=== PATIENT | female | born 1940 | race Caucasian/White ===

== ENCOUNTER → 2016-12-23 | Outpatient (CLI) | payer MEDICARE, OTHER ==
[~2016-12-23] MED LIST: AMLO10TA PO; LEVO25TA5 PO; LISI10TA4 PO; PROP80CA PO; PROP80TA PO; TRAZ25TA PO
[2016-12-23 11:04] LABS: ALBUMIN 3.9 GM/DL (3.2-5.2); ALKALINE PHOSPHATASE 100 U/L (45-117); ALT/SGPT 26 U/L (12-78); ANION GAP 8 MEQ/L (8-16); AST/SGOT 20 U/L (15-37); BILIRUBIN,TOTAL 0.5 MG/DL (0.2-1.0); BLOOD UREA NITROGEN 11 MG/DL (7-18); CARBON DIOXIDE LEVEL 30 MEQ/L (21-32); CHLORIDE LEVEL 104 MEQ/L (98-107); CHOLESTEROL LEVEL 192 MG/DL (<200); CREATININE FOR GFR 0.84 MG/DL (0.55-1.02); FREE T4 1.12 NG/DL (0.76-1.46); GLOMERULAR FILTRATION RATE > 60.0 (>39); GLUCOSE, FASTING 97 MG/DL (83-110); POTASSIUM SERUM 4.7 MEQ/L (3.5-5.1); SODIUM LEVEL 142 MEQ/L (136-145); TOTAL PROTEIN 7.8 GM/DL (6.4-8.2); TRIGLYCERIDES LEVEL 212 MG/DL (<150)
== END ==
LOC: M SMT 08:04
PROVIDERS: ATTEND Physician Assistant
DX: I10 Essential (primary) hypertension (principal)

== ENCOUNTER 2017-02-25 11:07 | Emergency (ER) | payer MEDICARE, OTHER ==
[~2017-02-25] VITALS: Ht 167.6 cm; Wt 90.4 kg
[2017-02-25] MEDS ORDERED: LEVO75TA4 PO (11:25)
[2017-02-25] MEDS ORDERED: PROP80CA PO (11:25)
[2017-02-25] MEDS ORDERED: LOSA100T36 PO (11:25)
[2017-02-25 12:53] LABS: BASO % 0.5 % (0.0-1.0); EOS # 0.1 K/mm3 (0.0-0.50); LARGE UNSTAINED CELL # 0.1 K/mm3 (0.0-0.4); LARGE UNSTAINED CELL % 1.7 % (0.0-4.0); LYMPH # 2.2 K/mm3 (1.5-4.5); LYMPH % 24.4 % (24.0-44.0); MEAN CORPUSCULAR HEMOGLOBIN 29.3 pg (27.0-33.0); MEAN CORPUSCULAR VOLUME 88.9 fl (80.0-96.0); MONO # 0.5 K/mm3 (0.0-0.8); MONO % 6.6 % (0.0-5.0); NEUTROPHILS # 5.5 K/mm3 (1.8-7.7); NEUTROPHILS % 65.9 % (36.0-66.0); PLATELET COUNT, AUTOMATED 226 k/mm3 (150-450); RED CELL DISTRIBUTION WIDTH 13.6 % (11.5-14.5); WHITE BLOOD COUNT 8.3 K/mm3 (4.0-10.0)
[2017-02-25 12:58] LABS: ALBUMIN 3.8 GM/DL (3.2-5.2); ALBUMIN/GLOBULIN RATIO 1.03 (1.00-1.93); ALKALINE PHOSPHATASE 89 U/L (45-117); ALT/SGPT 31 U/L (12-78); ANION GAP 8 MEQ/L (8-16); AST/SGOT 25 U/L (15-37); BILIRUBIN,DIRECT 0.1 MG/DL (0.0-0.2); BILIRUBIN,TOTAL 0.5 MG/DL (0.2-1.0); BLOOD UREA NITROGEN 14 MG/DL (7-18); CARBON DIOXIDE LEVEL 28 MEQ/L (21-32); CHLORIDE LEVEL 102 MEQ/L (98-107); CREATININE FOR GFR 0.84 MG/DL (0.55-1.02); GLOMERULAR FILTRATION RATE > 60.0 (>39); GLUCOSE, FASTING 134 MG/DL (83-110); POTASSIUM SERUM 4.1 MEQ/L (3.5-5.1); SODIUM LEVEL 138 MEQ/L (136-145); TOTAL PROTEIN 7.5 GM/DL (6.4-8.2)
--- NOTE | 2017-02-25 13:05 | REP ---
CT HEAD WITHOUT CONTRAST: HISTORY: Confusion. COMPARISON: 09/27/2014. Areas of decreased attentuation are present in the basal ganglia. These represent old lacunar infarctions. Areas of decreased attentuation are present in the periventricular white matter. This represents small vessel ischemic disease. There is on intraparenchymal hemorrhage, mass, or midline shift. The ventricular system and cortical sulci are dilated consistent with minimal volume loss. There is no extracerebral collection. The visualized sinuses are clear. IMPRESSION: 1. Old bilateral basal ganglia lacunar infarctions. 2. Small vessel ischemic disease. 3. Minimal volume loss. Signed by Ralph Dover MD 02/25/2017 01:06 P
[2017-02-25 16:11] VITALS: BP 175/79
--- NOTE | 2017-02-26 09:16 | ECGEPIP ---
Stationary ECG Study [facility] - ED Test Date: 2017-02-25 Pat Name: NETTA GIBSON Department: Room: - Gender: F Reed Maker: JOHN : 1940 Requested By: JIMY Mccann Order Number: [id number] Reading MD: Abiola Berrios Measurements Intervals [place] Rate: 65 P: 40 ME: 165 QRS: -38 QRSD: 102 T: 6 QT: 386 QTc: 404 Interpretive Statements SINUS RHYTHM MARKED LEFT AXIS DEVIATION PATTERN CONSISTENT WITH PULMONARY DISEASE VOLTAGE CRITERIA FOR LVH SIMILAR 10/20/14 Electronically Signed On 02-26-2017 9:15:59 EDT by Abiola Berrios
== END 2017-02-25 16:13 | disposition home or self-care (01) ==
LOC: M ED 15:15
DX: R41.0 Disorientation, unspecified (principal); I10 Essential (primary) hypertension; E03.9 Hypothyroidism, unspecified; Z79.899 Other long term (current) drug therapy; Z88.1 Allergy status to other antibiotic agents; Z88.8 Allergy status to other drugs, medicaments and biological substances

== ENCOUNTER → 2017-03-09 | Outpatient (CLI) | payer MEDICARE, OTHER ==
[~2017-03-09] MED LIST changes: +LEVO75TA4 PO; +LOSA100T36 PO
[2017-03-09 10:37] LABS: ANION GAP 8 MEQ/L (8-16); BLOOD UREA NITROGEN 18 MG/DL (7-18); CALCIUM LEVEL 8.7 MG/DL (8.8-10.2); CARBON DIOXIDE LEVEL 29 MEQ/L (21-32); CHLORIDE LEVEL 102 MEQ/L (98-107); CREATININE FOR GFR 0.86 MG/DL (0.55-1.02); FREE T4 1.16 NG/DL (0.76-1.46); GLOMERULAR FILTRATION RATE > 60.0 (>39); GLUCOSE, FASTING 121 MG/DL (83-110); POTASSIUM SERUM 4.4 MEQ/L (3.5-5.1); SODIUM LEVEL 139 MEQ/L (136-145)
== END ==
LOC: M LAB 09:37
PROVIDERS: ATTEND Physician Assistant
DX: R74.8 Abnormal levels of other serum enzymes (principal); I10 Essential (primary) hypertension; E03.9 Hypothyroidism, unspecified

== ENCOUNTER 2017-05-29 09:00 | Emergency (ER) | payer MEDICARE, OTHER ==
[~2017-05-29] VITALS: Ht 162.6 cm; Wt 89.2 kg
[2017-05-29] MEDS ORDERED: ASPI81CH PO (09:20)
[2017-05-29 11:06] LABS: BASO % 0.6 % (0.0-1.0); EOS # 0.2 K/mm3 (0.0-0.50); EOS % 2.3 % (0.0-3.0); LARGE UNSTAINED CELL # 0.1 K/mm3 (0.0-0.4); LARGE UNSTAINED CELL % 1.8 % (0.0-4.0); LYMPH # 2.2 K/mm3 (1.5-4.5); LYMPH % 26.5 % (24.0-44.0); MEAN CORPUSCULAR HEMOGLOBIN 30.1 pg (27.0-33.0); MEAN CORPUSCULAR HGB CONC 32.9 g/dl (32.0-36.5); MEAN CORPUSCULAR VOLUME 91.4 fl (80.0-96.0); MONO # 0.5 K/mm3 (0.0-0.8); MONO % 6.2 % (0.0-5.0); NEUTROPHILS # 4.9 K/mm3 (1.8-7.7); NEUTROPHILS % 62.5 % (36.0-66.0); PLATELET COUNT, AUTOMATED 203 k/mm3 (150-450); RED CELL DISTRIBUTION WIDTH 12.8 % (11.5-14.5); WHITE BLOOD COUNT 7.8 K/mm3 (4.0-10.0)
--- NOTE | 2017-05-29 11:06 | REP ---
Left lower extremity Duplex Doppler venous ultrasound: Real time compression and duplex Doppler interrogation of the left lower extremity deep venous system is performed. The left common femoral, superficial femoral and popliteal veins are fully compressible with transducer pressure and demonstrate normal spontaneous and phasic flow, without evidence of deep venous thrombosis. Impression: No evidence of deep venous thrombosis of the left lower extremity femoral popliteal venous system. Incidental note is made of a Laguna's cyst 2.8 x 1.8 x 1.7 cm. Signed by Valentin Corea MD 05/29/2017 10:57 A
[2017-05-29] MEDS ORDERED: PERCOCET 5MG/325MG TAB PO ONE (11:15)
[2017-05-29 11:34] LABS: ALBUMIN 3.5 GM/DL (3.2-5.2); ALKALINE PHOSPHATASE 81 U/L (45-117); ALT/SGPT 25 U/L (12-78); ANION GAP 11 MEQ/L (8-16); AST/SGOT 18 U/L (15-37); BILIRUBIN,DIRECT < 0.1 MG/DL (0.0-0.2); BILIRUBIN,TOTAL 0.5 MG/DL (0.2-1.0); BLOOD UREA NITROGEN 15 MG/DL (7-18); CALCIUM LEVEL 8.8 MG/DL (8.8-10.2); CARBON DIOXIDE LEVEL 26 MEQ/L (21-32); CHLORIDE LEVEL 104 MEQ/L (98-107); CREATININE FOR GFR 0.87 MG/DL (0.55-1.02); GLOMERULAR FILTRATION RATE > 60.0 (>39); GLUCOSE, FASTING 137 MG/DL (83-110); POTASSIUM SERUM 3.8 MEQ/L (3.5-5.1); SODIUM LEVEL 141 MEQ/L (136-145); TOTAL PROTEIN 7.4 GM/DL (6.4-8.2)
[2017-05-29 11:45] LABS: ERYTHROCYTE SEDIMENTATION RATE 3 mm/hr (0-30)
[2017-05-29] MEDS ORDERED: NAPR500T PO (13:39)
[2017-05-29 13:56] VITALS: BP 209/97
== END 2017-05-29 14:01 | disposition home or self-care (01) ==
LOC: M ED 09:00
DX: M54.32 Sciatica, left side (principal); E03.9 Hypothyroidism, unspecified; I10 Essential (primary) hypertension; K44.9 Diaphragmatic hernia without obstruction or gangrene; M71.22 Synovial cyst of popliteal space [Baker], left knee; Z79.82 Long term (current) use of aspirin; Z79.899 Other long term (current) drug therapy; Z88.8 Allergy status to other drugs, medicaments and biological substances; Z88.1 Allergy status to other antibiotic agents

== ENCOUNTER → 2017-06-08 | Outpatient (CLI) | payer MEDICARE, OTHER ==
[~2017-06-08] MED LIST changes: +ASPI81CH PO; +NAPR500T PO
[2017-06-08 14:13] LABS: ALBUMIN 3.6 GM/DL (3.2-5.2); ALBUMIN/GLOBULIN RATIO 0.97 (1.00-1.93); ALKALINE PHOSPHATASE 82 U/L (45-117); ALT/SGPT 26 U/L (12-78); ANION GAP 6 MEQ/L (8-16); AST/SGOT 21 U/L (15-37); BILIRUBIN,TOTAL 0.6 MG/DL (0.2-1.0); BLOOD UREA NITROGEN 15 MG/DL (7-18); CALCIUM LEVEL 9.1 MG/DL (8.8-10.2); CARBON DIOXIDE LEVEL 30 MEQ/L (21-32); CHLORIDE LEVEL 103 MEQ/L (98-107); CHOLESTEROL LEVEL 184 MG/DL (<200); CREATININE FOR GFR 0.85 MG/DL (0.55-1.02); GLOMERULAR FILTRATION RATE > 60.0 (>39); GLUCOSE, FASTING 94 MG/DL (83-110); POTASSIUM SERUM 4.4 MEQ/L (3.5-5.1); SODIUM LEVEL 139 MEQ/L (136-145); TOTAL PROTEIN 7.3 GM/DL (6.4-8.2); TRIGLYCERIDES LEVEL 292 MG/DL (<150)
== END ==
LOC: M SMT 08:13
PROVIDERS: ATTEND Family Medicine
DX: R73.9 Hyperglycemia, unspecified (principal); I10 Essential (primary) hypertension

== ENCOUNTER → 2017-06-10 | Outpatient (CLI) | payer MEDICARE, OTHER ==
[2017-06-10 19:52] LABS: ANION GAP 9 MEQ/L (8-16); BLOOD UREA NITROGEN 10 MG/DL (7-18); CALCIUM LEVEL 9.1 MG/DL (8.8-10.2); CARBON DIOXIDE LEVEL 28 MEQ/L (21-32); CHLORIDE LEVEL 103 MEQ/L (98-107); CREATININE FOR GFR 0.84 MG/DL (0.55-1.02); GLOMERULAR FILTRATION RATE > 60.0 (>39); GLUCOSE, FASTING 111 MG/DL (83-110); POTASSIUM SERUM 4.3 MEQ/L (3.5-5.1); SODIUM LEVEL 140 MEQ/L (136-145)
== END ==
LOC: M SMT 12:14
PROVIDERS: ATTEND Internal Medicine Cardiovascular Disease
DX: I10 Essential (primary) hypertension (principal)

== ENCOUNTER → 2017-12-07 | Outpatient (CLI) | payer MEDICARE, OTHER ==
[2017-12-07 13:34] LABS: BASO # 0.1 10^3/uL (0.0-0.2); BASO % 0.6 % (0.0-1.0); EOS # 0.2 10^3/uL (0.0-0.50); EOS % 2.4 % (0.0-3.0); HEMATOCRIT 44.9 % (36.0-47.0); HEMOGLOBIN 14.3 g/dl (12.0-16.0); IMMATURE GRANULOCYTE % 0.3 % (0-0); LYMPH # 2.6 10^3/uL (1.5-4.5); MEAN CORPUSCULAR HEMOGLOBIN 28.4 pg (27.0-33.0); MEAN CORPUSCULAR HGB CONC 31.8 g/dl (32.0-36.5); MEAN CORPUSCULAR VOLUME 89.3 fl (80.0-96.0); MONO # 0.7 10^3/uL (0.0-0.8); MONO % 8.8 % (0.0-5.0); NEUTROPHILS # 4.3 10^3/uL (1.8-7.7); NEUTROPHILS % 54.9 % (36.0-66.0); PLATELET COUNT, AUTOMATED 259 10^3/uL (150-450); RED BLOOD COUNT 5.03 10^6/uL (4.00-5.40); RED CELL DISTRIBUTION WIDTH 13.5 % (11.5-14.5); WHITE BLOOD COUNT 7.9 10^3/uL (4.0-10.0)
[2017-12-07 14:11] LABS: ALBUMIN 3.7 GM/DL (3.2-5.2); ALBUMIN/GLOBULIN RATIO 0.95 (1.00-1.93); ALKALINE PHOSPHATASE 90 U/L (45-117); ALT/SGPT 29 U/L (12-78); ANION GAP 5 MEQ/L (8-16); AST/SGOT 20 U/L (7-37); BILIRUBIN,TOTAL 0.3 MG/DL (0.2-1.0); BLOOD UREA NITROGEN 18 MG/DL (7-18); CARBON DIOXIDE LEVEL 30 MEQ/L (21-32); CHLORIDE LEVEL 104 MEQ/L (98-107); CHOLESTEROL LEVEL 194 MG/DL (<200); CREATININE FOR GFR 0.87 MG/DL (0.55-1.30); FREE T4 0.95 NG/DL (0.76-1.46); GLOMERULAR FILTRATION RATE > 60.0 (>39); GLUCOSE, FASTING 98 MG/DL (70-100); HDL CHOLESTEROL 40 MG/DL (>40); LDL CHOLESTEROL 101.2 MG/DL (<100); NON-HDL-C 154 MG/DL; POTASSIUM SERUM 4.4 MEQ/L (3.5-5.1); SODIUM LEVEL 139 MEQ/L (136-145); TOTAL PROTEIN 7.6 GM/DL (6.4-8.2); TRIGLYCERIDES LEVEL 264 MG/DL (<150)
== END ==
LOC: M SMT 08:21
DX: I10 Essential (primary) hypertension (principal); E03.9 Hypothyroidism, unspecified; K21.9 Gastro-esophageal reflux disease without esophagitis
CPT/HCPCS: 84443

== ENCOUNTER → 2018-07-06 | Outpatient (CLI) | payer MEDICARE, OTHER ==
[2018-07-06 15:11] LABS: ANION GAP 9 MEQ/L (8-16); BLOOD UREA NITROGEN 17 MG/DL (7-18); CALCIUM LEVEL 9.4 MG/DL (8.8-10.2); CARBON DIOXIDE LEVEL 28 MEQ/L (21-32); CHLORIDE LEVEL 104 MEQ/L (98-107); CHOLESTEROL LEVEL 204 MG/DL (<200); CREATININE FOR GFR 0.86 MG/DL (0.55-1.30); FREE T4 0.92 NG/DL (0.76-1.46); GLOMERULAR FILTRATION RATE > 60.0 (>39); GLUCOSE, FASTING 93 MG/DL (70-100); HDL CHOLESTEROL 40 MG/DL (>40); LDL CHOLESTEROL 96.8 MG/DL (<100); NON-HDL-C 164 MG/DL; POTASSIUM SERUM 4.3 MEQ/L (3.5-5.1); SODIUM LEVEL 141 MEQ/L (136-145); TRIGLYCERIDES LEVEL 336 MG/DL (<150)
== END ==
LOC: M SMT 08:31
DX: E03.9 Hypothyroidism, unspecified (principal); I10 Essential (primary) hypertension; E78.2 Mixed hyperlipidemia
CPT/HCPCS: 84443

== ENCOUNTER → 2019-01-03 | Outpatient (CLI) | payer MEDICARE, OTHER ==
[~2019-01-03] MED LIST changes: -LOSA100T36 PO; +LOSA100T50 PO; +NAPR-50 PO; -NAPR500T PO
[2019-01-03 12:46] LABS: BASO # 0.1 10^3/uL (0.0-0.2); BASO % 0.7 % (0.0-1.0); EOS # 0.2 10^3/uL (0.0-0.50); EOS % 2.3 % (0.0-3.0); HEMATOCRIT 44.7 % (36.0-47.0); HEMOGLOBIN 14.6 g/dl (12.0-15.5); LYMPH # 2.5 10^3/uL (1.5-4.5); LYMPH % 34.3 % (24.0-44.0); MEAN CORPUSCULAR HEMOGLOBIN 29.3 pg (27.0-33.0); MEAN CORPUSCULAR HGB CONC 32.7 g/dl (32.0-36.5); MEAN CORPUSCULAR VOLUME 89.6 fl (80.0-96.0); MONO # 0.6 10^3/uL (0.0-0.8); MONO % 8.2 % (0.0-5.0); NEUTROPHILS % 54.2 % (36.0-66.0); PLATELET COUNT, AUTOMATED 221 10^3/uL (150-450); RED BLOOD COUNT 4.99 10^6/uL (4.00-5.40); WHITE BLOOD COUNT 7.4 10^3/uL (4.0-10.0)
[2019-01-03 13:23] LABS: ALBUMIN 3.8 GM/DL (3.2-5.2); BILIRUBIN,TOTAL 0.5 MG/DL (0.2-1.0); CALCIUM LEVEL 8.6 MG/DL (8.8-10.2); CHOLESTEROL RISK RATIO 4.947 (<5); CREATININE FOR GFR 0.98 MG/DL (0.55-1.30); FREE T4 0.93 NG/DL (0.76-1.46); GLOMERULAR FILTRATION RATE 58.6 (>39); POTASSIUM SERUM 4.6 MEQ/L (3.5-5.1); THYROID STIMULATING HORMONE 2.74 uIU/ML (0.358-3.740); TOTAL PROTEIN 7.5 GM/DL (6.4-8.2)
== END ==
LOC: M SMT 07:51
PROVIDERS: ATTEND Physician Assistant
DX: I10 Essential (primary) hypertension (principal); E03.9 Hypothyroidism, unspecified; E78.2 Mixed hyperlipidemia; Z13.0 Encounter for screening for diseases of the blood and blood-forming organs and certain disorders involving the immune mechanism

== ENCOUNTER → 2019-10-06 | Outpatient (CLI) | payer MEDICARE, OTHER ==
[~2019-10-06] MED LIST changes: -ASPI81CH PO; +ASPI81CH49 PO; -NAPR-50 PO; +NAPR-837 PO; +TRAZ1TAB36 PO; -TRAZ25TA PO
[2019-10-06 09:44] LABS: BASO # 0.1 10^3/uL (0.0-0.2); BASO % 0.7 % (0.0-1.0); EOS # 0.1 10^3/uL (0.0-0.5); EOS % 1.6 % (0.0-3.0); HEMATOCRIT 47.4 % (36.0-47.0); LYMPH # 2.7 10^3/uL (1.5-5.0); LYMPH % 35.9 % (24.0-44.0); MEAN CORPUSCULAR HEMOGLOBIN 28.8 pg (27.0-33.0); MEAN CORPUSCULAR HGB CONC 31.6 g/dl (32.0-36.5); MONO # 0.7 10^3/uL (0.0-0.8); MONO % 9.7 % (0.0-5.0); NEUTROPHILS # 3.8 10^3/uL (1.5-8.5); NEUTROPHILS % 51.8 % (36.0-66.0); PLATELET COUNT, AUTOMATED 251 10^3/uL (150-450); RED BLOOD COUNT 5.21 10^6/uL (4.00-5.40); WHITE BLOOD COUNT 7.4 10^3/uL (4.0-10.0)
[2019-10-06 10:16] LABS: BILIRUBIN,TOTAL 0.5 MG/DL (0.2-1.0); CALCIUM LEVEL 9.2 MG/DL (8.8-10.2); CHOLESTEROL RISK RATIO 4.479 (<5); CREATININE FOR GFR 0.97 MG/DL (0.55-1.30); FREE T4 0.94 NG/DL (0.76-1.46); GLOMERULAR FILTRATION RATE 59.1 (>39); POTASSIUM SERUM 4.4 MEQ/L (3.5-5.1); THYROID STIMULATING HORMONE 3.51 uIU/ML (0.358-3.740); TOTAL PROTEIN 7.7 GM/DL (6.4-8.2)
== END ==
LOC: M PLALAB 08:09
PROVIDERS: ATTEND Family Medicine
DX: Z00.00 Encounter for general adult medical examination without abnormal findings (principal); E03.9 Hypothyroidism, unspecified; I10 Essential (primary) hypertension; E78.2 Mixed hyperlipidemia

== ENCOUNTER → 2020-01-11 | Outpatient (CLI) | payer MEDICARE, OTHER ==
[2020-01-11 11:41] LABS: ALT/SGPT 32 U/L (12-78); BILIRUBIN,TOTAL 0.6 MG/DL (0.2-1.0); BLOOD UREA NITROGEN 16 MG/DL (7-18); CALCIUM LEVEL 9.3 MG/DL (8.8-10.2); CARBON DIOXIDE LEVEL 30 MEQ/L (21-32); CHLORIDE LEVEL 104 MEQ/L (98-107); CREATININE FOR GFR 0.95 MG/DL (0.55-1.30); GLOMERULAR FILTRATION RATE > 60.0 (>39); GLUCOSE, FASTING 95 MG/DL (70-100); POTASSIUM SERUM 4.9 MEQ/L (3.5-5.1); SODIUM LEVEL 140 MEQ/L (136-145); TOTAL PROTEIN 7.7 GM/DL (6.4-8.2)
== END ==
LOC: M PLALAB 08:05
PROVIDERS: ATTEND Family Medicine
DX: I10 Essential (primary) hypertension (principal); E03.9 Hypothyroidism, unspecified

== ENCOUNTER → 2020-01-31 | Outpatient (CLI) | payer MEDICARE, OTHER ==
--- NOTE | 2020-01-31 10:40 | REP ---
RIGHT ANKLE SERIES: FOUR VIEWS. HISTORY: Pain. Injury in a fall down stairs. FINDINGS: There is mild lateral soft tissue swelling about the ankle. Ankle mortise is intact. Oblique radiographs demonstrate a chip fracture at the lateral aspect of the midfoot which appears to be originating from the anterolateral surface of the calcaneus. There is overlying soft tissue swelling. Fracture fragment is better seen on the AP radiograph of the foot. There is plantar calcaneal spurring. No other fracture is seen. IMPRESSION: There is a chip fracture of the anterolateral calcaneus with overlying soft tissue swelling. No ankle fracture is appreciated. Electronically Signed by Clayton Melo MD 01/31/2020 11:06 A
--- NOTE | 2020-01-31 10:41 | REP ---
RIGHT FOOT SERIES: FOUR VIEWS. HISTORY: Pain after a fall down stairs. FINDINGS: AP radiograph demonstrates a evulsion chip fracture from the anterolateral surface of the calcaneus with overlying soft tissue swelling. No other foot fracture is seen. There is plantar calcaneal spurring. Study is otherwise unremarkable. IMPRESSION: Anterolateral chip fracture from the calcaneus seen on the AP radiograph. No other fracture seen. Electronically Signed by Clayton Melo MD 01/31/2020 11:06 A
== END ==
LOC: M WUC 09:58
PROVIDERS: ATTEND Nurse Practitioner Family
DX: M25.571 Pain in right ankle and joints of right foot (principal)

== ENCOUNTER → 2020-04-13 | Outpatient (CLI) | payer MEDICARE, OTHER ==
[2020-04-13 10:06] LABS: BASO % 0.5 % (0.0-1.0); EOS # 0.1 10^3/uL (0.0-0.5); EOS % 1.8 % (0.0-3.0); HEMATOCRIT 45.1 % (36.0-47.0); HEMOGLOBIN 14.6 g/dl (12.0-15.5); LYMPH % 26.9 % (24.0-44.0); MEAN CORPUSCULAR HEMOGLOBIN 29.3 pg (27.0-33.0); MEAN CORPUSCULAR HGB CONC 32.4 g/dl (32.0-36.5); MEAN CORPUSCULAR VOLUME 90.6 fl (80.0-96.0); MONO # 0.7 10^3/uL (0.0-0.8); MONO % 8.8 % (0.0-5.0); NEUTROPHILS # 4.5 10^3/uL (1.5-8.5); NEUTROPHILS % 61.6 % (36.0-66.0); PLATELET COUNT, AUTOMATED 244 10^3/uL (150-450); RED BLOOD COUNT 4.98 10^6/uL (4.00-5.40); WHITE BLOOD COUNT 7.4 10^3/uL (4.0-10.0)
[2020-04-13 10:11] LABS: ALBUMIN 3.7 GM/DL (3.2-5.2); ALT/SGPT 32 U/L (12-78); BILIRUBIN,TOTAL 0.5 MG/DL (0.2-1.0); BLOOD UREA NITROGEN 14 MG/DL (7-18); CARBON DIOXIDE LEVEL 29 MEQ/L (21-32); CHLORIDE LEVEL 104 MEQ/L (98-107); CHOLESTEROL LEVEL 185 MG/DL (<200); CHOLESTEROL RISK RATIO 4.404 (<5); CREATININE FOR GFR 0.85 MG/DL (0.55-1.30); FREE T4 1.06 NG/DL (0.76-1.46); GLOMERULAR FILTRATION RATE > 60.0 (>39); GLUCOSE, FASTING 105 MG/DL (70-100); HDL CHOLESTEROL 42 MG/DL (>40); LDL CHOLESTEROL 106 MG/DL (<100); NON-HDL-C 143 MG/DL; POTASSIUM SERUM 4.2 MEQ/L (3.5-5.1); SODIUM LEVEL 140 MEQ/L (136-145); TOTAL PROTEIN 7.4 GM/DL (6.4-8.2); TRIGLYCERIDES LEVEL 184 MG/DL (<150)
== END ==
LOC: M PLALAB 08:00
PROVIDERS: ATTEND Family Medicine
DX: I10 Essential (primary) hypertension (principal); E78.2 Mixed hyperlipidemia; E03.9 Hypothyroidism, unspecified

== ENCOUNTER 2020-05-09 07:20 | Emergency (ER) | payer MEDICARE, OTHER ==
[~2020-05-09] VITALS: Ht 160 cm; Wt 84.1 kg
[2020-05-09] MEDS ORDERED: BYST5TAB2 PO (07:44)
[2020-05-09] MEDS ORDERED: DILT1CAP5 (07:44)
[2020-05-09] MEDS ORDERED: OMEP-218 (07:44)
[2020-05-09] MEDS ORDERED: ASPIRIN 81 MG CHEW TABLET PO ONE (08:00)
--- NOTE | 2020-05-09 08:11 | REPVR ---
PROCEDURE INFORMATION: Exam: CT Head Without Contrast Exam date and time: 05/09/2020 7:53 AM Age: 80 years old Clinical indication: Weakness, facial; Additional info: Parethesia left face TECHNIQUE: Imaging protocol: Computed tomography of the head without contrast. Radiation optimization: All CT scans at this facility use at least one of these dose optimization techniques: automated exposure control; mA and/or kV adjustment per patient size (includes targeted exams where dose is matched to clinical indication); or iterative reconstruction. COMPARISON: CT Head without contrast 02/25/2017 12:40 PM FINDINGS: Brain: No acute cortical infarct, mass effect, or intracranial hemorrhage. Dural calcification. Small-vessel ischemic change including bilateral basal ganglia lacunar infarcts. Additional poorly characterized 6 mm nodular hypodensity in the right umu (series 201: Image 9), which can be better characterized with MRI if clinically indicated. Symmetric prominence of the cortical sulci. Ventricles: Asymmetric caliber of the occipital horns. No hydrocephalus. Bones/joints: No acute calvarial pathology. Sinuses: No sinus fluid. Mastoid air cells: No mastoid effusion. Soft tissues: Unremarkable soft tissues. IMPRESSION: Small-vessel ischemic change including bilateral basal ganglia lacunar infarcts. Additional poorly characterized 6 mm nodular hypodensity in the right umu (series 201: Image 9), which can be better characterized with MRI if clinically indicated. Electronically signed by: Arnel Smith On 05/09/2020 08:10:27 AM
[2020-05-09 08:16] LABS: BASO # 0.1 10^3/uL (0.0-0.2); BASO % 0.7 % (0.0-1.0); EOS # 0.1 10^3/uL (0.0-0.5); EOS % 0.8 % (0.0-3.0); HEMATOCRIT 48.9 % (36.0-47.0); HEMOGLOBIN 15.9 g/dl (12.0-15.5); LYMPH # 1.9 10^3/uL (1.5-5.0); LYMPH % 25.7 % (24.0-44.0); MEAN CORPUSCULAR HEMOGLOBIN 29.5 pg (27.0-33.0); MEAN CORPUSCULAR HGB CONC 32.5 g/dl (32.0-36.5); MEAN CORPUSCULAR VOLUME 90.7 fl (80.0-96.0); MONO # 0.5 10^3/uL (0.0-0.8); MONO % 6.7 % (0.0-5.0); PLATELET COUNT, AUTOMATED 266 10^3/uL (150-450); RED BLOOD COUNT 5.39 10^6/uL (4.00-5.40); WHITE BLOOD COUNT 7.5 10^3/uL (4.0-10.0)
[2020-05-09 08:37] LABS: ALBUMIN 3.7 GM/DL (3.2-5.2); ALT/SGPT 30 U/L (12-78); BILIRUBIN,TOTAL 0.3 MG/DL (0.2-1.0); BLOOD UREA NITROGEN 10 MG/DL (7-18); CALCIUM LEVEL 9.6 MG/DL (8.8-10.2); CARBON DIOXIDE LEVEL 28 MEQ/L (21-32); CHLORIDE LEVEL 104 MEQ/L (98-107); CREATININE FOR GFR 0.89 MG/DL (0.55-1.30); GLOMERULAR FILTRATION RATE > 60.0 (>39); GLUCOSE, FASTING 111 MG/DL (70-100); POTASSIUM SERUM 4.2 MEQ/L (3.5-5.1); SODIUM LEVEL 140 MEQ/L (136-145); TOTAL PROTEIN 7.8 GM/DL (6.4-8.2)
[2020-05-09 08:38] VITALS: BP 212/91
[2020-05-09] MEDS ORDERED: NEBIVOLOL 5 MG TAB (BYSTOLIC) PO SCH (09:00)
[2020-05-09 16:46] VITALS: BP 180/78
--- NOTE | 2020-05-09 21:56 | REP ---
MRI brain: 05/09/2020. Indication: Left facial para seizure. Stroke. Technique: Multiplanar short and long TR sequences of the brain were performed without IV Gadolinium imaging. Comparison: 10/26/2014. Findings: There are no areas of restricted diffusion. There is no intracranial mass effect, hydrocephalus or significant hemorrhage. There are multiple areas of elevated T2 signal throughout the cerebral hemisphere white matter most consistent with chronic small vessel disease. Age appropriate volume loss is noted. The large intracranial flow voids are unremarkable. Impression: No acute intracranial process. Age related volume loss and sequelae of chronic microangiopathic ischemic disease. Electronically Signed by Wayne Montaño DO 05/09/2020 09:47 P
--- NOTE | 2020-05-09 22:04 | REP ---
Intracranial MRA: 05/09/2020. Indication: Stroke. Technique: 3-D [id number] imaging of the intracranial vessels were performed. Comparison: 10/28/2014. Findings: There is no intracranial aneurysm or AVM. The right nondominant V4 segment is narrowed by atherosclerotic disease. This is moderate to severe. 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 Otherwise unremarkable intracranial MRA. Electronically Signed by Wayne Montaño DO 05/09/2020 09:56 P
--- NOTE | 2020-05-10 00:16 | ECGEPIP ---
[facility] - ED Test Date: 2020-05-09 Pat Name: NETTA GIBSON Department: Room: - Gender: Female Fixing Carpenter: : 1940 Requested By: Abiola Berrios Order Number: [id number] Reading MD: Chalino Simmons Measurements Intervals [place] Rate: 79 P: 42 [place]: 167 QRS: -41 QRSD: 101 T: 57 QT: 362 QTc: 415 Interpretive Statements SINUS RHYTHM Left axis deviation PATTERN CONSISTENT WITH PULMONARY DISEASE Left ventricular hypertrophy by aVL criteria Nonspecific ST-T wave abnormalities Similar to tracing done 02-25-17 Electronically Signed on 05-10-2020 0:16:30 EDT by Chalino Simmons
--- NOTE | 2020-05-10 15:12 | ED PDOC ---
Post-Departure Follow-Up dr maddie bethea faxed formal report of ct head for fu Navi Orellana MD May 10, 2020 15:12
== END 2020-05-09 16:49 | disposition home or self-care (01) ==
LOC: M ED 07:20
DX: I10 Essential (primary) hypertension (principal); G47.09 Other insomnia; K21.9 Gastro-esophageal reflux disease without esophagitis; E07.9 Disorder of thyroid, unspecified; G43.909 Migraine, unspecified, not intractable, without status migrainosus; Z79.899 Other long term (current) drug therapy; Z79.890 Hormone replacement therapy; Z79.82 Long term (current) use of aspirin; Z88.1 Allergy status to other antibiotic agents; Z88.8 Allergy status to other drugs, medicaments and biological substances

== ENCOUNTER 2020-05-20 03:36 | Emergency (ER) | payer MEDICARE, OTHER ==
[~2020-05-20 03:36] MED LIST changes: +BYST5TAB2 PO; +DILT1CAP5; +OMEP-218
[2020-05-20 04:29] LABS: BASO # 0.1 10^3/uL (0.0-0.2); BASO % 0.5 % (0.0-1.0); EOS % 0.2 % (0.0-3.0); HEMATOCRIT 44.9 % (36.0-47.0); HEMOGLOBIN 14.4 g/dl (12.0-15.5); LYMPH # 1.9 10^3/uL (1.5-5.0); LYMPH % 20.1 % (24.0-44.0); MEAN CORPUSCULAR HEMOGLOBIN 29.1 pg (27.0-33.0); MEAN CORPUSCULAR HGB CONC 32.1 g/dl (32.0-36.5); MEAN CORPUSCULAR VOLUME 90.7 fl (80.0-96.0); MONO # 0.7 10^3/uL (0.0-0.8); MONO % 7.1 % (0.0-5.0); NEUTROPHILS # 6.8 10^3/uL (1.5-8.5); NEUTROPHILS % 71.7 % (36.0-66.0); PLATELET COUNT, AUTOMATED 244 10^3/uL (150-450); RED BLOOD COUNT 4.95 10^6/uL (4.00-5.40); WHITE BLOOD COUNT 9.5 10^3/uL (4.0-10.0)
[2020-05-20 04:39] LABS: INR 1.14; PROTHROMBIN TIME 14.3 SECONDS (11.8-14.0)
[2020-05-20 04:43] LABS: BLOOD UREA NITROGEN 14 MG/DL (7-18); CALCIUM LEVEL 8.3 MG/DL (8.8-10.2); CARBON DIOXIDE LEVEL 30 MEQ/L (21-32); CHLORIDE LEVEL 108 MEQ/L (98-107); CREATININE FOR GFR 0.89 MG/DL (0.55-1.30); GLOMERULAR FILTRATION RATE > 60.0 (>39); GLUCOSE, FASTING 108 MG/DL (70-100); POTASSIUM SERUM 3.8 MEQ/L (3.5-5.1); SODIUM LEVEL 143 MEQ/L (136-145)
--- NOTE | 2020-05-20 08:53 | ECGEPIP ---
[facility] - ED Test Date: 2020-05-20 Pat Name: NETTA GIBSON Department: Room: - Gender: Female Box Toe Flanger Stitchdowns: td : 1940 Requested By: SELENA OG Order Number: [id number] Reading MD: Claude Fajardo Measurements Intervals [place] Rate: 80 P: 40 DC: 174 QRS: -41 QRSD: 96 T: 52 QT: 377 QTc: 437 Interpretive Statements SINUS RHYTHM LEFT AXIS DEVIATION PATTERN CONSISTENT WITH PULMONARY DISEASE VOLTAGE CRITERIA FOR LVH NSTTW ABNORMALITIES SIMILAR TO 05/09/20 Electronically Signed on 05-20-2020 8:52:59 EDT by Claude Fajardo
[2020-05-20 10:35] VITALS: BP 182/82
--- NOTE | 2020-05-20 19:10 | ECGEPIP ---
[facility] - ED Test Date: 2020-05-20 Pat Name: NETTA GIBSON Department: Room: - Gender: Female Bi Tri Operator: shae : 1940 Requested By: SELENA OG Order Number: [id number] Reading MD: Claude Fajardo Measurements Intervals [place] Rate: 98 P: 43 DE: 171 QRS: -46 QRSD: 101 T: 75 QT: 356 QTc: 455 Interpretive Statements SINUS RHYTHM WITH SINUS ARRHYTHMIA PATTERN CONSISTENT WITH PULMONARY DISEASE LEFT ANTERIOR FASCICULAR BLOCK LEFT VENTRICULAR HYPERTROPHY AND ST-T CHANGE SIMILAR TO PRIOR ON SAME DATE Electronically Signed on 05-20-2020 19:10:47 EDT by Claude Fajardo
== END 2020-05-20 10:45 | disposition home or self-care (01) ==
LOC: M ED 03:36
DX: R07.89 Other chest pain (principal); R94.31 Abnormal electrocardiogram [ECG] [EKG]; I10 Essential (primary) hypertension; K21.9 Gastro-esophageal reflux disease without esophagitis; Z88.8 Allergy status to other drugs, medicaments and biological substances; Z79.82 Long term (current) use of aspirin; Z79.899 Other long term (current) drug therapy

== ENCOUNTER → 2020-06-13 | Outpatient (REF) | payer MEDICARE, OTHER ==
[2020-07-16 11:40] LABS: BASO % 0.5 % (0.0-1.0); EOS # 0.1 10^3/uL (0.0-0.5); EOS % 0.8 % (0.0-3.0); HEMATOCRIT 49.8 % (36.0-47.0); LYMPH # 2.4 10^3/uL (1.5-5.0); LYMPH % 26.6 % (24.0-44.0); MEAN CORPUSCULAR HEMOGLOBIN 29.7 pg (27.0-33.0); MEAN CORPUSCULAR HGB CONC 32.1 g/dl (32.0-36.5); MEAN CORPUSCULAR VOLUME 92.4 fl (80.0-96.0); MONO # 0.8 10^3/uL (0.0-0.8); MONO % 9.4 % (0.0-5.0); NEUTROPHILS # 5.5 10^3/uL (1.5-8.5); NEUTROPHILS % 62.5 % (36.0-66.0); PLATELET COUNT, AUTOMATED 196 10^3/uL (150-450); RED BLOOD COUNT 5.39 10^6/uL (4.00-5.40); WHITE BLOOD COUNT 8.9 10^3/uL (4.0-10.0)
[2020-07-29 14:07] LABS: BILIRUBIN,TOTAL 0.7 MG/DL (0.2-1.0); CALCIUM LEVEL 9.5 MG/DL (8.8-10.2); CREATININE FOR GFR 1.05 MG/DL (0.55-1.30); FREE T4 1.18 NG/DL (0.76-1.46); GLOMERULAR FILTRATION RATE 53.8 (>39); POTASSIUM SERUM 3.6 MEQ/L (3.5-5.1); THYROID STIMULATING HORMONE 1.25 uIU/ML (0.358-3.740); TOTAL PROTEIN 7.9 GM/DL (6.4-8.2)
== END ==
LOC: M PLALAB 11:44
PROVIDERS: ATTEND Physician Assistant
DX: F41.1 Generalized anxiety disorder (principal); I10 Essential (primary) hypertension

== ENCOUNTER 2021-02-09 12:17 | Inpatient (IN) | payer MEDICARE, OTHER ==
[~2021-02-09] VITALS: Ht 160 cm; Wt 74.8 kg
[2021-02-09] VITALS (10 sets, daily range): BP systolic 103–125; BP diastolic 53–60
[~2021-02-09 12:17] MED LIST changes: -DILT1CAP5; +DILT1CAP5 PO; +LISI10TA22 PO; -LISI10TA4 PO; -OMEP-218; +OMEP-218 PO
[2021-02-09] MEDS ORDERED: CHARCOAL ACTIVATED LIQUID 25 GM/120 ML BTL PO ONE ×2 (12:25→16:15)
[2021-02-09] MEDS ORDERED: DEXTROSE 50% 50 ML SYRINGE IV STA (12:30)
[2021-02-09] MEDS ORDERED: HumuLIN R (REGULAR) INSULIN (NovoLIN R) **100U/ML** PER UNIT IV ONE (12:30)
[2021-02-09] MEDS ORDERED: GLUCAGON INJ 1MG VIAL IV STA (12:30)
[2021-02-09] MEDS ORDERED: ATROPINE SULF 1MG/10ML SYRINGE (J0461) IV STA (12:30)
[2021-02-09] MEDS ORDERED: CALCIUM CHLORIDE 10% 1 GM in D5W 100 ML IV ONE (12:30)
[2021-02-09 12:45] LABS: VENOUS BASE EXCESS -2.4 (-2.0-2.0); VENOUS HCO3 22.3 MEQ/L (23.0-27.0); VENOUS PARTIAL PRESSURE CO2 38.3 mmHg (38.0-50.0); VENOUS PARTIAL PRESSURE O2 50.1 mmHg (30.0-50.0); VENOUS PH 7.383 UNITS (7.330-7.430); VENOUS STANDARD HCO3 22.3 MEQ/L; VENOUS TOTAL CO2 23.5 MEQ/L (24.0-28.0)
[2021-02-09 12:46] LABS: BASO % 0.2 % (0.0-1.0); HEMOGLOBIN 14.8 g/dl (12.0-15.5); LYMPH # 1.1 10^3/uL (1.5-5.0); LYMPH % 9.2 % (24.0-44.0); MEAN CORPUSCULAR HEMOGLOBIN 29.1 pg (27.0-33.0); MEAN CORPUSCULAR HGB CONC 32.2 g/dl (32.0-36.5); MEAN CORPUSCULAR VOLUME 90.4 fl (80.0-96.0); MONO # 0.8 10^3/uL (0.0-0.8); MONO % 6.6 % (2.0-8.0); NEUTROPHILS # 10.3 10^3/uL (1.5-8.5); NEUTROPHILS % 83.7 % (36.0-66.0); PLATELET COUNT, AUTOMATED 270 10^3/uL (150-450); RED BLOOD COUNT 5.09 10^6/uL (4.00-5.40); WHITE BLOOD COUNT 12.3 10^3/uL (4.0-10.0)
--- NOTE | 2021-02-09 13:12 | REP ---
INDICATION: Drug Overdose. COMPARISON: 05/20/2020. TECHNIQUE: SINGLE PORTABLE AP VIEW OF THE CHEST WAS PERFORMED. FINDINGS: There is mild cardiomegaly. There is mild calcification of the thoracic aorta. The mediastinal silhouette is otherwise unremarkable and unchanged. There is minor bibasilar fibro atelectatic change with no evidence of acute infiltrate. IMPRESSION: No acute infiltrate. Mild cardiomegaly. <Electronically signed by Valentin Corea > 02/09/21 0705
[2021-02-09] MEDS ORDERED: HYDR-3910 PO (13:22)
[2021-02-09 13:24] LABS: ACETAMINOPHEN LEVEL < 2.0 UG/ML (10.0-30.0); ALBUMIN 3.6 GM/DL (3.2-5.2); ALT/SGPT 20 U/L (12-78); BILIRUBIN,DIRECT 0.2 MG/DL (0.0-0.2); BILIRUBIN,TOTAL 0.5 MG/DL (0.2-1.0); BLOOD UREA NITROGEN 17 MG/DL (7-18); CALCIUM LEVEL 9.1 MG/DL (8.8-10.2); CARBON DIOXIDE LEVEL 24 MEQ/L (21-32); CHLORIDE LEVEL 105 MEQ/L (98-107); CPK CREATINE PHOSPHOKINASE 68 U/L (26-192); CREATININE FOR GFR 0.95 MG/DL (0.55-1.30); ETHYL ALCOHOL (ETHANOL) < 0.003 % (0.000-0.010); GLOMERULAR FILTRATION RATE > 60.0 (>39); GLUCOSE, FASTING 136 MG/DL (70-100); MAGNESIUM LEVEL 2.2 MG/DL (1.8-2.4); POTASSIUM SERUM 3.8 MEQ/L (3.5-5.1); SALICYLATE LEVEL < 1.7 MG/DL (5.0-30.0); SODIUM LEVEL 138 MEQ/L (136-145); THYROID STIMULATING HORMONE 0.898 uIU/ML (0.358-3.740); TOTAL PROTEIN 7.3 GM/DL (6.4-8.2)
[2021-02-09 13:26] LABS: AMPHETAMINES LEVEL URINE NEGATIVE (NEGATIVE); BARBITURATES URINE NEGATIVE (NEGATIVE); BENZODIAZEPINES URINE NEGATIVE (NEGATIVE); CANNABINOIDS URINE NEGATIVE (NEGATIVE); COCAINE METABOLITE URINE NEGATIVE (NEGATIVE); METHADONE URINE NEGATIVE (NEGATIVE); OPIATES URINE NEGATIVE (NEGATIVE); PHENCYCLIDINE URINE NEGATIVE (NEGATIVE)
[2021-02-09 13:44] LABS: RSV AMPLIFICATION NEGATIVE (NEGATIVE)
[2021-02-09] MEDS ORDERED: COMMENTS (14:26)
[2021-02-09] MEDS ORDERED: ATROPINE SULF 1MG/10ML SYRINGE (J0461) IV PRN (14:30)
[2021-02-09] MEDS: NS 1,000 ML IV SCH ×2 (15:26→22:58)
--- NOTE | 2021-02-09 16:21 | HPEPDOC ---
[facility] Medical History & Physical Date of Admission Feb 09, 2021 Date of Service: Feb 09, 2021 Primary Care Physician: JENNIFER CLARK DO Attending Physician: LUIS MENA MD History and Physical CHIEF COMPLAINT: Intentional overdose HISTORY OF PRESENT ILLNESS: Patient is a 80-year-old female who was brought to the emergency department this morning by EMS. Patient called her brother who is her power of commonwealth attorney stating that she was feeling sick. Her brother arrived at her apartment to find the patient was lying in bed and had vomited. Patient's brother found that the patient's pill bottles that were filled recently were all empty. Patient's brother did not notice any pills in the vomit however, the vomit was blue. EMS reportedly said that there was a pile of pills in the vomit. Patient did admit to vomiting multiple times. Patient's empty pill bottles included 240 mg of Cardizem extended release, hydralazine 25 mg, levothyroxine 88 g, omeprazole 40 mg, and Bystolic 5 mg. Patient was on each one of these medications once a day with exception hydralazine which was twice a day. Patient most likely took around 25 other once a day medications and patient may have taken around 50 of her hydralazine. Patient states that she went to bed sometime around 8:30 PM yesterday, 02/08/2021. Patient states that she took the pills sometime overnight. Patient states that she called her brother around 11:00 this morning, 02/09/2021. Patient was brought to emergency department by EMS to the patient has been monitored. Patient has not shown any vital sign instability. Patient did receive a dose of activated charcoal but no other treatment was given at this time. Poison control was contacted by the emergency department who advised the patient be admitted for further observation. Patient does not endorse suicidality at this time and saying that she is unsure why she took all her pills. She is actually unsure of whether or not she actually did take her pills. Patient was admitted into the inpatient mental health unit at the end of May 2020 for hearing voices in her head. Patient's brother states that after this hospitalization the patient was moved to a fci in [place], [place]. While at the fci, the patient tried to escape multiple times and a sitter was watching the patient all times. Because of this, patient was moved to a locked dementia unit where she stayed for about 6 weeks. Patient was started on Risperdal and Namenda which patient's brother says made her a different person. Patient found out that she was taking these medications and refuses to take them. Patient recently moved back to [place], [place] on 02/05/2021 and is currently living in the [facility]. Patient was planning on moving to the assisted living portion [facility]. Report I received from nursing staff in the emergency department stated that the patient said that she may have taken a medication because she couldn't live there anymore and that she would have to move but did not endorse wanting to kil l her or hurt herself. Patient's only complaint at this time is that she has been shaking and having the chills however, she reports that this is been going on for a few weeks prior to today. Patient's brother states that this is been going on for quite some time. They also report that the patient has lost quite a bit a weight over the past year. Patient's brother reports that the patient has tried to commit suicide to previous times, once in 2002 with sleeping pills and once in 2013 or with blood pressure medication. PAST MEDICAL HISTORY: 1. Hypertension. 2. depression with 2 previous suicide attempts. 3. Hyperlipidemia. 4. Generalized anxiety disorder 5. GERD 6. Hypothyroidism PAST SURGICAL HISTORY: 1. Cholecystectomy. SOCIAL HISTORY: Currently lives at [facility] alone with plan to be transitioned to assisted living, 02/11/2021. Patient has never smoked, never drank alcohol and never used illicit substances. 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 FAMILY HISTORY: Patient brother states that there is a family history of dementia but does not report any other family history ALLERGIES: Please see below. REVIEW OF SYSTEMS: General: Patient denies fevers HEENT: Patient denies headaches Cardiovascular: Patient denies chest pain Respiratory: Patient denies shortness of breath, cough GI: Patient denies abdominal pain, nausea, vomiting, diarrhea : Patient denies increased frequency or pain with urination Extremities: Patient denies swelling or pain in extremities Neurological: Patient denies numbness or tingling in legs Skin: Patient denies any new rashes or lesions. Hematologic: Patient denies any easy bruising. Lymphatic: Patient denies any lumps lumps or bumps in neck, axilla, or groin HOME MEDICATIONS: Please see below. PHYSICAL EXAMINATION: VITAL SIGNS: Temperature 98.3, pulse 61, respiratory rate 16, blood pressure 114/55, pulse oximetry 94% on 1 L of oxygen via nasal cannula General: Alert and oriented female patient who was laying on the stretcher when I walked in the room. Patient was tired appearing but did answer questions appropriately. Patient's brother who is the patient's power of commonwealth attorney and healthcare proxy was present in the emergency department during the interview and examination. Patient did not appear to be in any acute distress HEENT: Normocephalic, atraumatic, moist mucous membranes, bilateral external auditory canals are blocked with cerumen Neck: No lymphadenopathy or thyromegaly Cardiac: Regular rate and rhythm, no murmurs, normal S1, normal S2 Pulm: Clear to auscultation bilaterally. No wheezes, rhonchi, rales Abd: Nondistended, nontender to palpation, normal bowel sounds Ext: No edema bilateral lower extremities LABORATORY DATA: See below. IMAGING: A chest x-ray performed on 02/09/2021 was reported to show no acute infiltrate and mild cardiomegaly MICROBIOLOGY: Please see below. ASSESSMENT: Patient is a 80-year-old female who presents to the emergency department with an overdose of Cardizem, hydralazine, Bystolic, levothyroxine, and omeprazole who will be admitted for observation of vital signs and further treatment. PLAN: 1. Overdose. We are unsure of exactly when or if the patient took these medications as her story is different when talking with multiple people. Patient may have taken the medications just prior to calling her brother which was around 11:00 AM this morning. Patient's vitals were stable in the emergency department and continue this way. Patient's blood sugars are mildly elevated without a history of diabetes. Patient did vomit and according to her brother, the vomit was blue which was the same color as the omeprazole. EMS reportedly said that there was a pile of pills in the vomit when they arrived. Poison control was contacted and advised the patient be admitted for further observation. Patient received a dose of activated charcoal in the emergency department. I spoke with toxicology who advise giving her another dose of activated charcoal 4 hours after the previous dose. I was advised that if the patient becomes symptomatic with either bradycardia and/or hypotension atropine should be given. Currently atropine has been written as a when necessary medication with instruction to call provider if medication needs to be given. If atropine is unsuccessful at reversing the side effects, calcium gluconate or calcium chloride is the next step. After that vasopressor therapy should be initiated while high insulin euglycemic therapy is being started. The protocol was sent to me and I'll print it out and put a copy of it in the patient's chart in case it is needed. We will continue to monitor the patient. Patient is on every hour fingersticks to monitor for her glucose as if the glucose begins to rise, this is a sign of a calcium channel tha overdose. Calcium channel tha peaks at 10-14 hours. Psychiatry has been consulted and will see the patient tomorrow, 02/10/2021. Patient has been placed on suicide precautions and bedside sitter. 2. Hypertension. We are holding her home medications secondary to her overdose and we'll continue to monitor her vital signs very closely. 3. History of depression/anxiety. Patient has had 2 previous suicide attempts but denies suicidality at this time. Psychiatry will see the patient tomorrow morning. 4. Hypothyroidism. Medications on hold secondary to overdose. 5. GERD. Patient took all of her omeprazole today so we'll not give this to her at this time. 6. DVT prophylaxis: Lovenox 7. Advance directives: Patient will be full code at this time due to possible suicide attempt. Patient does have a living will that states that she is unable to make any decisions for herself and her condition is deemed incurable, she would like comfort measures only. No DO NOT RESUSCITATE order is on file and due to the patient's possible suicide attempt patient will remain as full code at this time. Disposition: Patient will be admitted into the intensive care unit for close monitoring of her vital signs. If patient remains stable overnight, the patient could be discharged either home or to inpatient mental health unit tomorrow. Vital Signs Vital Signs Date Time Temp Pulse Resp B/P (MAP) Pulse Ox O2 Delivery O2 Flow Rate FiO2 02/09/21 15:20 61 16 114/55 (74) 94 Nasal Cannula 1.0 02/09/21 15:00 98.3 Laboratory Data Labs 24H Laboratory Tests 2 02/09/21 12:20: Immature Granulocyte % (Auto) 0.3, Neutrophils (%) (Auto) 83.7H, Lymphocytes (%) (Auto) 9.2L, Monocytes (%) (Auto) 6.6, Eosinophils (%) (Auto) 0.0, Basophils (%) (Auto) 0.2, Neutrophils # (Auto) 10.3H, Lymphocytes # (Auto) 1.1L, Monocytes # (Auto) 0.8, Eosinophils # (Auto) 0.0, Basophils # (Auto) 0.0, Nucleated Red Blood Cells % (auto) 0.0, Anion Gap 9, Glomerular Filtration Rate > 60.0, Calcium Level 9.1, Magnesium Level 2.2, Total Bilirubin 0.5, Direct Bilirubin 0.2, Aspartate Amino Transf (AST/SGOT) 13, Alanine Aminotransferase (ALT/SGPT) 20, Alkaline Phosphatase 98, Total Creatine Kinase 68, Total Protein 7.3, Albumin 3.6, Albumin/Globulin Ratio 1.0L, Thyroid Stimulating Hormone (TSH) 0.898, Salicylates Level < 1.7L, Acetaminophen Level < 2.0L, Ethyl Alcohol Level < 0.003 02/09/21 12:28: Blood Gas Bicarbonate Standard 22.3, Venous Blood pH 7.383, Venous Blood Partial Pressure CO2 38.3, Venous Blood Partial Pressure O2 50.1H, Venous Blood Total Carbon Dioxide 23.5L, Venous Blood HCO3 22.3L, Venous Blood Oxygen Saturation 87.0H, Venous Blood Base Excess -2.4L, Urine Opiates Screen NEGATIVE, Urine Methadone Screen NEGATIVE, Urine Barbiturates Screen NEGATIVE, Urine Phencyclidine Screen NEGATIVE, Urine Amphetamines Screen NEGATIVE, Urine Benzodiazepines Screen NEGATIVE, Urine Cocaine Metabolite Screen NEGATIVE, Urine Cannabinoids Screen NEGATIVE 02/09/21 12:46: Bedside Glucose (Misc Panel) 148H 02/09/21 12:49: Coronavirus (COVID-19)(PCR) NEGATIVE, Influenza Type A (RT-PCR) NEGATIVE, Infl uenza Type B (RT-PCR) NEGATIVE, Respiratory Syncytial Virus (PCR) NEGATIVE 02/09/21 14:25: Bedside Glucose (Misc Panel) 177H CBC/BMP Laboratory Tests 02/09/21 12:20 Home Medications Scheduled Aspirin (Aspirin) 81 Mg Chw, 81 MG PO DAILY Diltiazem Hcl (Diltiazem 24Hr ER) 240 Mg Cap.sa.24h, 240 MG PO DAILY Hydralazine HCl (Hydralazine HCl) 25 Mg Tablet, 25 MG PO BID Levothyroxine Sodium (Levothyroxine Sodium) 75 Mcg Tab, 75 MCG PO DAILY Nebivolol HCl (Bystolic) 5 Mg Tablet, 5 MG PO DAILY Omeprazole (Omeprazole) 20 Mg Capsule.dr, 20 MG PO DAILY Miscellaneous Medications [Comments] MED LIST MADE WITH EXTERNAL MED HISTORY Allergies Coded Allergies: amlodipine (Verified Adverse Reaction, Intermediate, 05/09/20) ankle swelling erythromycin base (Verified Adverse Reaction, Mild, 05/09/20) dizziness lisinopril (Verified Adverse Reaction, Mild, 05/09/20) tinnitus losartan (Verified Adverse Reaction, Mild, 05/09/20) muscle weakness rosuvastatin (Verified Adverse Reaction, Mild, 05/09/20) confusion valsartan (Verified Adverse Reaction, Mild, 05/09/20) muscle weakness A-FIB/CHADSVASC A-FIB History Current/History of A-Fib/PAF?: No GME ATTESTATION GME ATTESTATION My faculty preceptor for this patient encounter was physically present during the encounter and was fully available. All aspects of the patient interview, examination, medical decision making process, and medical care plan development were reviewed and approved by the faculty preceptor. The faculty preceptor is aware and concurs with the plan as stated in the body of this note and will attest to such by his/her cosignature. ATTENDING NOTE I, Luis Mena, have independently examined this patient and performed my own physical exam, as well as reviewed the documentation and edited where necessary. I have discussed in detail with the resident / student the findings and plan of treatment as documented by the resident / student and edited their note. I agree with their findings and treatment plan and have edited their document ation. I will continue to follow the patient during this hospital stay. ARNOL DORAN DO Feb 09, 2021 16:21 LUIS MENA MD Feb 09, 2021 16:37
[2021-02-09 17:12] LABS: HEMATOCRIT 44.8 % (36.0-47.0); HEMOGLOBIN 14.3 g/dl (12.0-15.5); MEAN CORPUSCULAR HEMOGLOBIN 29.2 pg (27.0-33.0); MEAN CORPUSCULAR HGB CONC 31.9 g/dl (32.0-36.5); MEAN CORPUSCULAR VOLUME 91.4 fl (80.0-96.0); PLATELET COUNT, AUTOMATED 244 10^3/uL (150-450); WHITE BLOOD COUNT 12.5 10^3/uL (4.0-10.0)
[2021-02-09 17:46] LABS: ALBUMIN 3.3 GM/DL (3.2-5.2); BILIRUBIN,TOTAL 0.4 MG/DL (0.2-1.0); CALCIUM LEVEL 8.9 MG/DL (8.8-10.2); CREATININE FOR GFR 1.14 MG/DL (0.55-1.30); GLOMERULAR FILTRATION RATE 48.9 (>39); POTASSIUM SERUM 3.8 MEQ/L (3.5-5.1); TOTAL PROTEIN 6.8 GM/DL (6.4-8.2)
[2021-02-10] VITALS (12 sets, daily range): BP systolic 104–164; BP diastolic 50–76
[2021-02-10 05:05] LABS: BASO % 0.2 % (0.0-1.0); EOS % 0.4 % (0.0-3.0); HEMATOCRIT 41.1 % (36.0-47.0); HEMOGLOBIN 13.2 g/dl (12.0-15.5); LYMPH # 2.4 10^3/uL (1.5-5.0); LYMPH % 26.2 % (24.0-44.0); MEAN CORPUSCULAR HEMOGLOBIN 29.7 pg (27.0-33.0); MEAN CORPUSCULAR HGB CONC 32.1 g/dl (32.0-36.5); MEAN CORPUSCULAR VOLUME 92.6 fl (80.0-96.0); MONO # 0.9 10^3/uL (0.0-0.8); NEUTROPHILS # 5.8 10^3/uL (1.5-8.5); NEUTROPHILS % 62.9 % (36.0-66.0); PLATELET COUNT, AUTOMATED 217 10^3/uL (150-450); RED BLOOD COUNT 4.44 10^6/uL (4.00-5.40); WHITE BLOOD COUNT 9.2 10^3/uL (4.0-10.0)
[2021-02-10 05:39] LABS: BLOOD UREA NITROGEN 13 MG/DL (7-18); CALCIUM LEVEL 8.2 MG/DL (8.8-10.2); CARBON DIOXIDE LEVEL 27 MEQ/L (21-32); CHLORIDE LEVEL 110 MEQ/L (98-107); CREATININE FOR GFR 0.89 MG/DL (0.55-1.30); GLOMERULAR FILTRATION RATE > 60.0 (>39); GLUCOSE, FASTING 106 MG/DL (70-100); POTASSIUM SERUM 3.5 MEQ/L (3.5-5.1); SODIUM LEVEL 141 MEQ/L (136-145); THYROID STIMULATING HORMONE 0.559 uIU/ML (0.358-3.740)
[2021-02-10] MEDS: NS 1,000 ML IV SCH ×2 (08:46→18:31)
[2021-02-10] MEDS: ENOXAPARIN 40MG/0.4ML SYRINGE (J1650 PER 10MG) SC SCH (08:46)
--- NOTE | 2021-02-10 11:10 | IPNPDOC ---
Text Note Date of Service The patient was seen on 02/10/21. NOTE Subjective: Patient is a 80-year-old female with a PMHx of HTN, DLP, Hypothyroidism, Depression (Hx of suicidal attempts in the past), SILVIO, GERD who presented to the ER via EMS after she was noted to have consumed several pills. Patient did not overtly express suicidal thoughts. However, her past history includes suicidal attempt with medication overdoses. Poison control was contacted and patient was placed in ICU overnight. Patient was seen and examined at the bedside; bedside sitter is present. Currently, she denies any nausea, vomiting, chest pain, short of breath, palpitations, abdominal pain or diarrhea. Objective: Vitals (See below) General: Lying in bed, no acute distress, comfortable, AAOx3 HEENT: NC, AT CVS: RRR, +S1S2 Lungs: Fair air entry b/l, -w/r/r Abdomen: Soft, ND, NT Extremities: - Edema, - Calf tenderness Assessment and plan: Overdose with multiple medications - Patient had reportedly consumed hydralazine, nebivolol, diltiazem, levothyroxine and omeprazole - Poison control was contacted - Patient did not require any additional intervention other than Charcoal - She has remained hemodynamically stable - c/w IV fluid hydration Suicidal attempt - Continue with bedside sitter and suicidal precautions - Psychiatry has been consulted; awaiting their evaluation today Hypertension - Pressure currently remains well controlled - Will hold Nebivolol / Hydralazine / Diltiazem Depression / Anxiety - Psychiatry has been called on consultation Hypothyroidism - Will hold levothyroxine for now GERD - Will hold Omeprazole for now DVT prophylaxis - c/w Lovenox Disposition: - c/w bedside sitter/suicidal precautions - Psychiatry to evaluate today - Will downgrade patient out of ICU today VS,Fishbone, I+O VS, Fishbone, I+O Laboratory Tests 02/09/21 12:20 02/09/21 16:59 02/10/21 04:37 02/10/21 04:38 Vital Signs Date Time Temp Pulse Resp B/P (MAP) Pulse Ox O2 Delivery O2 Flow Rate FiO2 02/10/21 09:48 98.7 75 18 138/55 (82) 94 Room Air 02/09/21 15:20 1.0 I&O- Last 24 Hours up to 6 AM 02/10/21 06:00 Intake Total 2590 ml Output Total 2450 ml Balance 140 ml BECKY MENA MD Feb 10, 2021 11:10
--- NOTE | 2021-02-10 11:13 | ECGEPIP ---
[facility] Test Date: 2021-02-10 Pat Name: NETTA GIBSON Department: Room: [place] [address] Gender: Female Manager Automotive: harvinder : 1940 Requested By: ARNOL DORAN Order Number: [id number] Reading MD: Sundeep Ramos Measurements Intervals [place] Rate: 65 P: 19 FL: 176 QRS: -39 QRSD: 100 T: 30 QT: 426 QTc: 443 Interpretive Statements Normal sinus rhythm Left axis deviation/left anterior hemiblock Moderate voltage criteria for LVH, may be normal variant ( R in aVL , Jitendra product ) Last tracing on 02/09/21 at 12:34 No remarkable changes but slower heart rate Electronically Signed on 02-10-2021 11:13:28 EDT by Sundeep Ramos
--- NOTE | 2021-02-10 15:40 | ECGEPIP ---
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
[2021-02-11] MEDS: NS 1,000 ML IV SCH (04:48)
[2021-02-11 06:00] VITALS: BP 140/72
[2021-02-11] MEDS ORDERED: LEVOTHYROXINE 75MCG TABLET (0.075MG) PO SCH (06:00)
[2021-02-11 06:25] LABS: BASO # 0.1 10^3/uL (0.0-0.2); BASO % 0.6 % (0.0-1.0); EOS # 0.1 10^3/uL (0.0-0.5); EOS % 0.6 % (0.0-3.0); HEMATOCRIT 43.1 % (36.0-47.0); HEMOGLOBIN 13.8 g/dl (12.0-15.5); LYMPH # 2.1 10^3/uL (1.5-5.0); LYMPH % 19.9 % (24.0-44.0); MEAN CORPUSCULAR HEMOGLOBIN 29.1 pg (27.0-33.0); MEAN CORPUSCULAR VOLUME 90.7 fl (80.0-96.0); MONO # 0.9 10^3/uL (0.0-0.8); MONO % 8.8 % (2.0-8.0); NEUTROPHILS # 7.5 10^3/uL (1.5-8.5); NEUTROPHILS % 69.8 % (36.0-66.0); PLATELET COUNT, AUTOMATED 214 10^3/uL (150-450); RED BLOOD COUNT 4.75 10^6/uL (4.00-5.40); WHITE BLOOD COUNT 10.7 10^3/uL (4.0-10.0)
[2021-02-11 06:52] LABS: BLOOD UREA NITROGEN 14 MG/DL (7-18); CALCIUM LEVEL 8.5 MG/DL (8.8-10.2); CARBON DIOXIDE LEVEL 27 MEQ/L (21-32); CHLORIDE LEVEL 109 MEQ/L (98-107); GLOMERULAR FILTRATION RATE > 60.0 (>39); GLUCOSE, FASTING 97 MG/DL (70-100); MAGNESIUM LEVEL 2.1 MG/DL (1.8-2.4); POTASSIUM SERUM 3.8 MEQ/L (3.5-5.1); SODIUM LEVEL 142 MEQ/L (136-145)
--- NOTE | 2021-02-11 08:43 | IPNPDOC ---
Text Note Date of Service The patient was seen on 02/11/21. VS,Gutierrezbone, I+O VS, Fishbone, I+O Laboratory Tests 02/11/21 05:34 Vital Signs Date Time Temp Pulse Resp B/P (MAP) Pulse Ox O2 Delivery O2 Flow Rate FiO2 02/11/21 06:00 97.4 80 17 140/72 (94) 96 Room Air 02/09/21 15:20 1.0 I&O- Last 24 Hours up to 6 AM 02/11/21 06:00 Intake Total 2200 ml Output Total 3650 ml Balance -1450 ml BECKY MENA MD Feb 11, 2021 08:43
[2021-02-11] MEDS ORDERED: OMEPRAZOLE 20 MG CAP PO SCH (09:00)
[2021-02-11] MEDS ORDERED: NEBIVOLOL 5 MG TAB (BYSTOLIC) PO SCH (09:00)
[2021-02-11] MEDS ORDERED: ASPIRIN 81 MG CHEW TABLET PO SCH (09:00)
[2021-02-11] MEDS: ENOXAPARIN 40MG/0.4ML SYRINGE (J1650 PER 10MG) SC SCH (10:41)
--- NOTE | 2021-02-11 11:58 | DS.PDOC ---
Discharge Summary General Date of Admission Feb 09, 2021 at 13:59 Date of Discharge 02/11/2021 Discharge Summary PROCEDURES PERFORMED DURING STAY: [None]. ADMITTING DIAGNOSES / DISCHARGE DIAGNOSES: Overdose with multiple medications Suicidal attempt Hypertension Depression / Anxiety Hypothyroidism GERD DVT prophylaxis COMPLICATIONS/CHIEF COMPLAINT: Overdose. HISTORY OF PRESENT ILLNESS: Patient is a 80-year-old female with a PMHx of HTN, DLP, Hypothyroidism, Depression (Hx of suicidal attempts in the past), SILVIO, GERD who presented to the ER via EMS after she was noted to have consumed several pills. Patient did not overtly express suicidal thoughts. However, her past history includes suicidal attempt with medication overdoses. Poison control was contacted and patient was placed in ICU overnight. Patient was seen and examined at the bedside. Currently patient reports that they feel relatively fine and they've had an uneventful evening.. She did however report nursing staff that she was experiencing suicidal thoughts. Denies any chest pain, shortness of breath, palpitations. Has not experience any nausea, vomiting, abdominal pain or diarrhea. HOSPITAL COURSE: Overdose with multiple medications - Patient had reportedly consumed hydralazine, nebivolol, diltiazem, levothyr oxine and omeprazole - Poison control was contacted - Patient did not require any additional intervention other than Charcoal - Hemodynamically stable - Will DC IV fluid hydration - Patient has been medically optimized for transition to inpatient mental health unit Suicidal attempt - c/w bedside sitter and suicidal precautions - Psychiatry has been consulted - has evaluated patient and accepted to the inpatient mental health unit - Patient will likely be transferred to [facility] today Hypertension - BP is normotensive currently - Will resume Hydralazine / Diltiazem / Nebivolol Depression / Anxiety - Psychiatry has been called on consultation; patient has been accepted to the inpatient mental health unit Hypothyroidism - Will resume levothyroxine GERD - Will resume Omeprazole DVT prophylaxis - c/w Lovenox DISCHARGE MEDICATIONS: Please see below. ALLERGIES: Please see below. PHYSICAL EXAMINATION ON DISCHARGE: Vitals (See below) General: Patient is lying in bed, appears comfortable, is awake, alert, oriented to person, place and time, president HEENT: LOVE, AT CVS: +S1S2 Lungs: Fair air entry b/l, there is fair air entry bilaterally without evidence of wheezing, crackles or rhonchi Abdomen: Soft, nondistended and nontender Extremities: Lower extremities are without any edema LABORATORY DATA: Please see below. IMAGING: CXR 02/09: No acute infiltrate. Mild cardiomegaly. ACTIVITY: [As tolerated]. DISCHARGE PLAN: Transfer to inpatient mental health unit under the care of psychiatry DISPOSITION: Inpatient mental health unit DISCHARGE CONDITION: [Stable]. TIME SPENT ON DISCHARGE: 35 minutes. Vital Signs/I&Os Vital Signs Date Time Temp Pulse Resp B/P (MAP) Pulse Ox O2 Delivery O2 Flow Rate FiO2 02/11/21 10:41 96 160/90 02/11/21 06:00 97.4 17 96 Room Air 02/09/21 15:20 1.0 I&O- Last 24 Hours up to 6 AM 02/11/21 06:00 Intake Total 2200 ml Output Total 3650 ml Balance -1450 ml Laboratory Data Labs 24H Laboratory Tests 2 02/10/21 16:23: Bedside Glucose (Misc Panel) 90 02/10/21 20:40: Bedside Glucose (Misc Panel) 109 02/11/21 05:34: Immature Granulocyte % (Auto) 0.3, Neutrophils (%) (Auto) 69.8H, Lymphocytes (%) (Auto) 19.9L, Monocytes (%) (Auto) 8.8H, Eosinophils (%) (Auto) 0.6, Basophils (%) (Auto) 0.6, Neutrophils # (Auto) 7.5, Lymphocytes # (Auto) 2.1, Monocytes # (Auto) 0.9H, Eosinophils # (Auto) 0.1, Basophils # (Auto) 0.1, Nucleated Red Blood Cells % (auto) 0.0, Anion Gap 6L, Glomerular Filtration Rate > 60.0, Calcium Level 8.5L, Magnesium Level 2.1 CBC/BMP Laboratory Tests 02/11/21 05:34 FSBS Laboratory Tests Test 02/10/21 16:23 02/10/21 20:40 Range/Units Bedside Glucose (Misc Panel) 90 109 83-110 MG/DL Discharge Medications Scheduled Aspirin (Aspirin) 81 Mg Chw, 81 MG PO DAILY, (Reported) Diltiazem Hcl (Diltiazem 24Hr ER) 240 Mg Cap.sa.24h, 240 MG PO DAILY, (Reported) Hydralazine HCl (Hydralazine HCl) 25 Mg Tablet, 25 MG PO BID, (Reported) Levothyroxine Sodium (Levothyroxine Sodium) 75 Mcg Tab, 75 MCG PO DAILY, (R eported) Nebivolol HCl (Bystolic) 5 Mg Tablet, 5 MG PO DAILY, (Reported) Omeprazole (Omeprazole) 20 Mg Capsule.dr, 20 MG PO DAILY, (Reported) Miscellaneous Medications [Comments] , (Reported) MED LIST MADE WITH EXTERNAL MED HISTORY Allergies Coded Allergies: amlodipine (Verified Adverse Reaction, Intermediate, 05/09/20) ankle swelling erythromycin base (Verified Adverse Reaction, Mild, 05/09/20) dizziness lisinopril (Verified Adverse Reaction, Mild, 05/09/20) tinnitus losartan (Verified Adverse Reaction, Mild, 05/09/20) muscle weakness rosuvastatin (Verified Adverse Reaction, Mild, 05/09/20) confusion valsartan (Verified Adverse Reaction, Mild, 05/09/20) muscle weakness BECKY MENA MD Feb 11, 2021 11:58
[2021-02-11] MEDS ORDERED: **hydrALAZINE HCL** 25 MG TAB PO SCH (12:00)
[2021-02-11 12:38] VITALS: BP 152/89
--- NOTE | 2021-02-11 12:52 | MHCR ---
[facility] CONSULTATION DATE: 02/11/2021 IDENTIFYING DATA: She is a 80-year-old white female living in her own apartment, was brought by emergency medical services (EMS) for overdose of pills, possible suicide attempt. Consultation was called to evaluate her for depression. HISTORY OF PRESENT ILLNESS: Patient reportedly called her brother, who is her power of consumer attorney, stating that she was feeling sick. When brother arrived at the apartment, he found that she was laying in the bed and she had vomited. Brother found pill bottles, which were empty, which included 240 mg of Cardizem XR, hydralazine 25 mg, levothyroxine 88 mcg, omeprazole 40 mg, Bystolic 5 mg. Patient was on each one of these medications once a day. Patient's vomitus was full of pills and she was brought to the emergency room. Patient was evaluated today. She reports that she does not remember why she took the medications, but her brother was the one who came and called EMS and she was brought here. She feels sad that she is not able to see her relatives and she is tearful. Patient reports she has seen psychiatrist when her father several years ago. Has never been hospitalized in psychiatric hospitals; however, she was prescribed pills like risperidone and Zoloft, which made her sick and she stopped it. Currently, she complains of depressed mood and low appetite, poor sleep, low energy. She has lost weight, continues to be tearful. Denies any hopelessness. Denies any hallucinations. Denies any anxiety. She currently is not on any psychotropic medications. MENTAL STATUS EXAMINATION: Laying in her bed, cooperative. Made good eye contact. Mood is depressed. Affect is labile, tearful. Speech: Current, low-tone. Thought process: Linear, goal-directed. At times there is some confabulation. Thought content: Denied any suicidal or homicidal ideas. Memory: Immediate and recall normal. Immediate retention was two out of three. Recent and remote were good. Attention was good. Insight and judgment were fair. ASSESSMENT: Major depressive disorder, recurrent. PLAN: Transfer her to inpatient mental health unit ([facility]).when medically clear. MTDD
[2021-02-11 14:00] VITALS: BP 106/73
--- NOTE | 2021-02-11 18:01 | REP ---
INDICATION: Reported L ankle pain. COMPARISON: None. FINDINGS: No acute fracture or destructive osseous lesion. The mortise is intact. IMPRESSION: No acute disease <Electronically signed by Delano Sanchez > 02/11/21 1856
== END 2021-02-11 18:36 | DRG 918 ==
LOC: M ED 12:17 → M ED INP 13:59 → ENRESERV 14:09 → M ICU 15:16 → M MSPAV 02-10 09:43
PROVIDERS: ADMIT Internal Medicine; ATTEND Internal Medicine
DX: T46.5X2A Poisoning by other antihypertensive drugs, intentional self-harm, initial encounter (principal); T46.1X2A Poisoning by calcium-channel blockers, intentional self-harm, initial encounter; T44.7X2A Poisoning by beta-adrenoreceptor antagonists, intentional self-harm, initial encounter; T38.1X2A Poisoning by thyroid hormones and substitutes, intentional self-harm, initial encounter; T47.1X2A Poisoning by other antacids and anti-gastric-secretion drugs, intentional self-harm, initial encounter; I10 Essential (primary) hypertension; F41.1 Generalized anxiety disorder; F32.9 Major depressive disorder, single episode, unspecified; E03.9 Hypothyroidism, unspecified; K21.9 Gastro-esophageal reflux disease without esophagitis; Z79.82 Long term (current) use of aspirin; Z79.899 Other long term (current) drug therapy; Z88.8 Allergy status to other drugs, medicaments and biological substances; E78.5 Hyperlipidemia, unspecified

== ENCOUNTER 2021-02-11 14:44 | Inpatient (IN) | payer MEDICARE, OTHER ==
[~2021-02-11] VITALS: Ht 160 cm; Wt 68.2 kg
[~2021-02-11 14:44] MED LIST changes: +COMMENTS; +HYDR-3910 PO
[2021-02-11] MEDS ORDERED: ACETAMINOPHEN TAB 650MG DOSE (2X325MG) PO PRN (14:55)
[2021-02-11] MEDS ORDERED: traZODone 50 MG TAB PO PRN (14:55)
[2021-02-11] MEDS ORDERED: MAALOX 30 ML SUSP *UDC PO PRN (14:55)
[2021-02-11] MEDS ORDERED: MOM 30ML SUSPENSION UDC PO PRN (14:55)
[2021-02-11 19:11] VITALS: BP 153/70
[2021-02-11 21:12] VITALS: BP 149/94
[2021-02-11] MEDS: **hydrALAZINE HCL** 25 MG TAB PO SCH (21:26)
[2021-02-11] MEDS: MIRTAZAPINE 7.5MG PER 1/2 TABLET PO SCH (21:26)
[2021-02-12] MEDS: LEVOTHYROXINE 75MCG TABLET (0.075MG) PO SCH (05:43)
[2021-02-12 06:45] VITALS: BP 166/88
[2021-02-12] MEDS: OMEPRAZOLE 20 MG CAP PO SCH (08:43)
[2021-02-12] MEDS: ASPIRIN 81 MG CHEW TABLET PO SCH (08:44)
[2021-02-12] MEDS: NEBIVOLOL 5 MG TAB (BYSTOLIC) PO SCH (08:44)
[2021-02-12] MEDS: **hydrALAZINE HCL** 25 MG TAB PO SCH ×2 (08:45→19:57)
--- NOTE | 2021-02-12 15:45 | MHHPE ---
[facility] HISTORY AND PHYSICAL DATE OF ADMISSION: 02/11/2021 IDENTIFYING DATA: She is a 80-year-old female who was transferred from medical unit after getting treated for overdose of pills, possible suicide attempt. CHIEF COMPLAINT: "I don't like these pills. They make me sick." HISTORY OF PRESENT ILLNESS: Reportedly she was living in [place] alone, and she called her brother, who is her power of attorney lawyer, stating that she was not feeling well. When her brother arrived, she was lying there with emptied bottles around her, and she had vomited some pills. Those pills bottles included Cardizem, hydralazine, levothyroxine, omeprazole, Bystolic. Recently she had filled them, but they were all empty. She reports that she does not remember why she took the medications. Her brother was the one who came and called emergency medical services (EMS), and she was brought to the hospital. She reports she is depressed because she is not able to see her relatives. Currently somewhat angry and agitated. She had previous psychiatric hospitalizations and several overdose of pills. She was admitted to [facility] in the past for overdose of pills. She was on various medications, like Zoloft, Effexor, and risperidone. A lot of these medications did not help her. Currently she complains of depressed mood, low appetite, poor sleep, low energy. She has lost weight. Continues to be tearful; however, denies any hopelessness. Patient has history of auditory hallucinations in the past, probably related to her depression. PAST PSYCHIATRIC HISTORY: About four to five psychiatric hospitalizations. She started seeing a psychiatrist after her father . SUICIDAL HISTORY: Several suicide attempts by overdose of pills MEDICAL HISTORY: 1. Hypertension. 2. Hyperlipidemia. 3. Hypothyroidism. SOCIAL HISTORY: Patient currently lives in [facility] alone. She has a plan to be transitioned to assisted living. Patient has never smoked. Neer drank alcohol. Never used any illicit drugs. 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 FAMILY HISTORY: There is a family history of dementia in the family. REVIEW OF SYSTEMS: The patient denies fever or sweating at night. Patient denies headaches. CARDIOVASCULAR: Denies chest pain. RESPIRATORY: Denies shortness of breath or cough. GASTROINTESTINAL: Denies abdominal pain, nausea, vomiting, diarrhea. GENITOURINARY: Denies frequency or dysuria. EXTREMITIES: Patient denies swelling or pain in the extremities. NEUROLOGIC: Patient denies numbness and tingling. VITAL SIGNS: Blood pressure 135/60, temperature 98.8, pulse 77, respirations 18, pulse oximetry 97. MENTAL STATUS EXAMINATION: Patient is lying in bed, partially cooperative. Made intermittent eye contact, however, replied "I don't like these medications. They make me sick." Mood is depressed. Affect is labile. Tearful speech, low tone. Thought process linear, goal directed. At times there is confabulation. Thought content: Currently denies suicidal or homicidal ideas. Memory, immediate, remote recall, was normal. Recent and remote memory were good. Attention was good. Insight and judgment were good. DIAGNOSES: 1. Major depressive disorder, recurrent. 2. Hypothyroidism. 3. Hypertension. PLAN: Continue Remeron 7.5 mg at night. Continue rest of the medication. Titrate the dose. ESTIMATED LENGTH OF STAY: 7-8 days. TIME SPENT ON THE PATIENT: 1 hour. [facility]
[2021-02-12 16:31] VITALS: BP 140/62
--- NOTE | 2021-02-12 16:56 | HPEPDOC ---
[facility] Medical History & Physical Date of Admission Feb 11, 2021 Date of Service: Feb 12, 2021 Attending Physician: CANDIDA PETERSON MD History and Physical CHIEF COMPLAINT: Depressed mood with recent suicidal attempt HISTORY OF PRESENT ILLNESS: 80-year-old W who was recently admitted to medicine for overdose with all her prescription medications and unable to corroborate intention. She was admitted into the inpatient mental health unit at the end of May 2020 for auditory hallucinations and after [facility] discharge was moved to a fci in [place], [place] where she tried to escape multiple times and a sitter was watching the patient all times and was moved to a locked dementia unit where she stayed for about 6 weeks and placed on Risperdal and Namenda after which she had some improvement and was moved back to [place], [place] on 02/05/2021 and was currently living in the [facility]. On admission to medicine, poison control was contacted and she was admitted to the ICU for close observation overnight and did well with supportive IVF with no complications. Labs remained wnl and she eventually reported suicidal thoughts to nursing during her time on inpatient medicine. She was seen by psychiatry who deemed her appropriate for [facility] admission and was discharged to the [facility] on 02/11. Today, she denies any physical pain complaints without chest pain, palpitations, shortness of breath, headaches, abdominal pain, nausea, emesis, constipations, fevers or chills. She reports chronic tinnitus with chronic hearing loss and is due to receive new hearing aids next week and chronic L ankle pain from remote trauma. PAST MEDICAL HISTORY: 1. Hypertension. 2. depression with 2 previous suicide attempts. 3. Hyperlipidemia. 4. Generalized anxiety disorder 5. GERD 6. Hypothyroidism PAST SURGICAL HISTORY: 1. Cholecystectomy. SOCIAL HISTORY: Currently lives at [facility] alone with plan to be transitioned to assisted living, 02/11/2021. Patient has never smoked, never drank alcohol and never used illicit substances. 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 FAMILY HISTORY: Patient brother states that there is a family history of dementia but does not report any other family history ALLERGIES: Please see below. REVIEW OF SYSTEMS: 10 point ROS was grossly negative except chronic tinnitus, hearing loss and L ankle chronic pain as noted in the HPI. HOME MEDICATIONS: Please see below. PHYSICAL EXAMINATION: VITAL SIGNS: HDS, afebrile, on room air General: Alert and oriented. Answers questions appropriately. NAD HEENT: Normocephalic, atraumatic, moist mucous membranes Neck: No lymphadenopathy or thyromegaly Cardiac: Regular rate and rhythm, no murmurs, normal S1, normal S2 Pulm: Clear to auscultation bilaterally. No wheezes, rhonchi, rales Abd: Nondistended, nontender to palpation, normal bowel sounds Ext: No edema bilateral lower extremities LABORATORY DATA: See below. Reviewed recent labs. IMAGING: None ASSESSMENT: 80-year-old W with a history of depression and prior suicide attempts, a recent history of auditory hallucinations who was recently admitted to medicine with an overdose of Cardizem, hydralazine, Bystolic, levothyroxine, and omeprazole and now discharged from medicine to the [facility] for psychiatric evaluation and treatment. PLAN: Depression with recent suicidal attempt: -Plan per primary psych team Hypertension.: -continue home dilt, hydral, nebivolol Hypothyroidism. -continue home levothyroxine GERD -Continue home omeprazole DVT prophylaxis: ambulatory Thank you for the consultation. Without active medical issues, internal medicine will sign off at this time. Vital Signs Vital Signs Date Time Temp Pulse Resp B/P (MAP) Pulse Ox O2 Delivery O2 Flow Rate FiO2 02/12/21 16:31 98.1 62 15 140/62 (88) 98 Room Air Home Medications Scheduled Aspirin (Aspirin) 81 Mg Chw, 81 MG PO DAILY Diltiazem Hcl (Diltiazem 24Hr ER) 240 Mg Cap.sa.24h, 240 MG PO DAILY Hydralazine HCl (Hydralazine HCl) 25 Mg Tablet, 25 MG PO BID Levothyroxine Sodium (Levothyroxine Sodium) 75 Mcg Tab, 75 MCG PO DAILY Nebivolol HCl (Bystolic) 5 Mg Tablet, 5 MG PO DAILY Omeprazole (Omeprazole) 20 Mg Capsule.dr, 20 MG PO DAILY Miscellaneous Medications [Comments] MED LIST MADE WITH EXTERNAL MED HISTORY Allergies Coded Allergies: amlodipine (Verified Adverse Reaction, Intermediate, 05/09/20) ankle swelling erythromycin base (Verified Adverse Reaction, Mild, 05/09/20) dizziness lisinopril (Verified Adverse Reaction, Mild, 05/09/20) tinnitus losartan (Verified Adverse Reaction, Mild, 05/09/20) muscle weakness rosuvastatin (Verified Adverse Reaction, Mild, 05/09/20) confusion valsartan (Verified Adverse Reaction, Mild, 05/09/20) muscle weakness A-FIB/CHADSVASC A-FIB History Current/History of A-Fib/PAF?: No Current PO Anticoag Therapy: No Age/Risk Factor Scoring CHADSVASC: CHADSVASC Response (Comments) Value Age Risk Factor Age >/= 75 years old 2 Gender Risk Factor Female 1 Hx of CHF No 0 Hx of HTN Yes 1 Hx of Stroke/TIA/or VTE No 0 Hx of Diabetes No 0 Hx of Vascular Disease No 0 Total 4 Treatment Treatment ordered: NONE Reason Anticoagulant not given: Not indicated/[id number] CANDIDA PETERSON MD Feb 12, 2021 16:56
[2021-02-12] MEDS: MIRTAZAPINE 7.5MG PER 1/2 TABLET PO SCH (19:57)
[2021-02-13] MEDS: LEVOTHYROXINE 75MCG TABLET (0.075MG) PO SCH (05:42)
[2021-02-13 06:12] VITALS: BP 143/67
[2021-02-13] MEDS: OMEPRAZOLE 20 MG CAP PO SCH (08:12)
[2021-02-13] MEDS: ASPIRIN 81 MG CHEW TABLET PO SCH (08:12)
[2021-02-13] MEDS: **hydrALAZINE HCL** 25 MG TAB PO SCH ×2 (08:13→20:02)
[2021-02-13] MEDS: NEBIVOLOL 5 MG TAB (BYSTOLIC) PO SCH (08:13)
--- NOTE | 2021-02-13 13:19 | MHIPNPDOC ---
[facility] Progress Note Progress Note DATE OF SERVICE: 02/13/21 HISTORY:Patient is a 80 year old Single, Retired, Domiciled female who was medically stabilized on medicine status post a suicide attempt by overdose of her medications. She reports that she cannot remember if it was an actual suicide attempt. Reports that command hallucinations were telling her to do it. She has been hearing these voices for many months. States that "Arjun" her auditory hallucinations wakes her up and won't leave her alone. She also complained of poor sleep. Patient has a number of psychiatric admissions to this facility and has had past overdoses. Patient had recently filled her medications and empty bottles lying beside her. She had called her brother stating that she was not feeling well, he found her and he called EMS. Reports depression because of COVID, not being able to see her family. Reported depressive symptoms of: Depressed mood, poor appetite, poor sleep, poor energy, weight loss, suicidal ideation, auditory hallucinations, feelings of isolation. VITAL SIGNS: See below. CURRENT MEDICATIONS: See below. MENTAL STATUS EXAMINATION: Patient is a 80 year old Single, Retired, Domiciled female who was med ically stabilized on medicine status post a suicide attempt by overdose of her medications. Speech: Is clear, spontaneous, normal rate, tone and volume. Language skills are intact Thought processes including: linear and goal oriented Thought content: mild depression and anxiety, currently denying suicidal thinking Abstract reasoning, and computation: fair Description of associations: none observed Description of abnormal or psychotic thoughts: hearing a voice "Arjun" he told her to kill herself, still hears his voice but she is denying having suicidal thinking Judgment: impaired Insight: impaired Orientation: alert and oriented Recent and remote memory: intact Attention span and concentration: fair Language: expansive Fund of knowledge: average Mood: depressed Affect: anxious DIAGNOSES: Major depressive disorder, recurrent, severe with psychotic features Hyothyroid Hypertension ASSESSMENT: Patient found sleeping in her room. She was agreeable to interview. She reports that she is unsure if her overdose was an actual suicide attempt. She states that she kept hearing voices to do it and these voices had been going on for months. She states that she can't sleep because "Arjun" is waking her up at night and "he wont' leave me alone" She reports decreased in depression, no reports of current suicidality and but continues to complain of "Arjun" badgering her. She wants to return to [facility]. MANAGEMENT PLAN: Continues all medications, restarted Risperdal for patient's complaints of auditory hallucinations. TIME SPENT: 25 minutes. Vital Signs Vital Signs Date Time Temp Pulse Resp B/P (MAP) Pulse Ox O2 Delivery O2 Flow Rate FiO2 02/13/21 08:56 Room Air 02/13/21 08:13 80 134/68 02/13/21 06:12 98.4 18 97 Current Medications Current Medications Medications (Trade) Dose Ordered Sig/Paras Route PRN Reason Start Time Stop Time Status Last Admin Dose Admin Acetaminophen (Tylenol Tab) 650 mg Q6HP PRN PO HEADACHE or DISCOMFORT 02/11/21 14:55 Al Hydrox/Mg Hydrox/Simethicone (Mylanta) 30 ml Q4HP PRN PO HEARTBURN/INDIGESTION 02/11/21 14:55 Aspirin (Aspirin Chewable) 81 mg DAILY PO 02/12/21 09:00 02/13/21 08:12 Diltiazem HCl (Cardizem Cd) 240 mg DAILY PO 02/12/21 09:00 02/13/21 08:13 Home Med (Med Rec Complete!) ASDIRECTED XX 02/11/21 15:05 02/11/21 18:58 DC Hydralazine HCl (Apresoline) 25 mg BID PO 02/11/21 21:00 02/13/21 08:13 Levothyroxine Sodium (Synthroid) 75 mcg DAILY@0600 PO 02/12/21 06:00 02/13/21 05:42 Magnesium Hydroxide (Milk Of Magnesia) 30 ml DAILYPRN PRN PO CONSTIPATION 02/11/21 14:55 Mirtazapine (Remeron) 7.5 mg QHS PO 02/11/21 21:00 02/12/21 19:57 Nebivolol (Bystolic) 5 mg DAILY PO 02/12/21 09:00 02/13/21 08:13 Omeprazole (PriLOSEC) 20 mg DAILY PO 02/12/21 09:00 02/13/21 08:12 Trazodone HCl (Desyrel) 50 mg QHSP PRN PO INSOMNIA 02/11/21 14:55 Allergies Coded Allergies: amlodipine (Verified Adverse Reaction, Intermediate, 05/09/20) ankle swelling erythromycin base (Verified Adverse Reaction, Mild, 05/09/20) dizziness lisinopril (Verified Adverse Reaction, Mild, 05/09/20) tinnitus losartan (Verified Adverse Reaction, Mild, 05/09/20) muscle weakness rosuvastatin (Verified Adverse Reaction, Mild, 05/09/20) confusion valsartan (Verified Adverse Reaction, Mild, 05/09/20) muscle weakness PATRICK PATE NP Feb 13, 2021 13:19
[2021-02-13 16:35] VITALS: BP 132/60
[2021-02-13] MEDS: MIRTAZAPINE 7.5MG PER 1/2 TABLET PO SCH (20:00)
[2021-02-13] MEDS ORDERED: risperiDONE 2 MG TAB PO SCH (21:00)
[2021-02-14] MEDS: LEVOTHYROXINE 75MCG TABLET (0.075MG) PO SCH (06:06)
[2021-02-14 06:31] VITALS: BP 154/70
[2021-02-14] MEDS: NEBIVOLOL 5 MG TAB (BYSTOLIC) PO SCH (08:18)
[2021-02-14] MEDS: OMEPRAZOLE 20 MG CAP PO SCH (08:18)
[2021-02-14] MEDS: ASPIRIN 81 MG CHEW TABLET PO SCH (08:18)
[2021-02-14] MEDS: SERTRALINE HCL 25 MG TABLET PO SCH (08:18)
[2021-02-14] MEDS: **hydrALAZINE HCL** 25 MG TAB PO SCH ×2 (08:18→20:09)
[2021-02-14] MEDS ORDERED: BENZTROPINE 0.5 MG TAB PO PRN (10:05)
[2021-02-14] MEDS ORDERED: BENZTROPINE MESYLATE 2MG/2ML VIAL IM ONE (10:30)
[2021-02-14] MEDS ORDERED: BENZTROPINE 1 MG TAB PO ONE (11:00)
--- NOTE | 2021-02-14 16:15 | MHIPNPDOC ---
[facility] Progress Note Progress Note DATE OF SERVICE: 02/14/21 HISTORY:Patient is a 80 year old Single, Retired, Domiciled female who was medically stabilized on medicine status post a suicide attempt by overdose of her medications. She reports that she cannot remember if it was an actual suicide attempt. Reports that command hallucinations were telling her to do it. She has been hearing these voices for many months. States that "Arjun" her auditory hallucinations wakes her up and won't leave her alone. She also complained of poor sleep. Patient has a number of psychiatric admissions to this facility and has had past overdoses. Patient had recently filled her medications and empty bottles lying beside her. She had called her brother stating that she was not feeling well, he found her and he called EMS. Reports depression because of COVID, not being able to see her family. Reported depressive symptoms of: Depressed mood, poor appetite, poor sleep, poor energy, weight loss, suicidal ideation, auditory hallucinations, feelings of isolation. VITAL SIGNS: See below. CURRENT MEDICATIONS: See below. MENTAL STATUS EXAMINATION: Patient is a 80 year old Single, Retired, Domiciled female who was med ically stabilized on medicine status post a suicide attempt by overdose of her medications. Speech: Is clear, spontaneous, normal rate, tone and volume. Language skills are intact Thought processes including: linear and goal oriented Thought content: mild depression and anxiety, currently denying suicidal thinking Abstract reasoning, and computation: fair Description of associations: none observed Description of abnormal or psychotic thoughts: hearing a voice "Arjun" he told her to kill herself, still hears his voice but she is denying having suicidal thinking Judgment: improved Insight: improved Orientation: alert and oriented Recent and remote memory: intact Attention span and concentration: fair Language: expansive Fund of knowledge: average Mood: reports less depressed Affect: brighter affect DIAGNOSES: Major depressive disorder, recurrent, severe with psychotic features Hyothyroid Hypertension ASSESSMENT: She wants to return to [facility]. She denies continues depression and but states that she was suicidal because she had not been able to see family for 9 months because of COVID. She reports that "Arjun" was a voice that had immerged within the past 7-9 months. She states that "Arjun" was keeping her up at night and she kept hearing the voice and getting up to check on things and losing sleep. Have tried to reinforce an antipsychotic medications and patient refused. MANAGEMENT PLAN: Continues all medications, patient does not want Risperdal reports that she does not want anything. Ordered Abilify 2 mg HS. Continues to report auditory hallucinations but less frequent. TIME SPENT: 25 minutes. Vital Signs Vital Signs Date Time Temp Pulse Resp B/P (MAP) Pulse Ox O2 Delivery O2 Flow Rate FiO2 02/14/21 08:18 82 154/70 02/14/21 06:31 97.2 18 97 Room Air Current Medications Current Medications Medications (Trade) Dose Ordered Sig/Paras Route PRN Reason Start Time Stop Time Status Last Admin Dose Admin Acetaminophen (Tylenol Tab) 650 mg Q6HP PRN PO HEADACHE or DISCOMFORT 02/11/21 14:55 Al Hydrox/Mg Hydrox/Simethicone (Mylanta) 30 ml Q4HP PRN PO HEARTBURN/INDIGESTION 02/11/21 14:55 Aspirin (Aspirin Chewable) 81 mg DAILY PO 02/12/21 09:00 02/14/21 08:18 Benztropine Mesylate (Cogentin) 0.5 mg BIDP PRN PO EPS 02/14/21 10:05 Diltiazem HCl (Cardizem Cd) 240 mg DAILY PO 02/12/21 09:00 02/14/21 08:17 Home Med (Med Rec Complete!) ASDIRECTED XX 02/11/21 15:05 02/11/21 18:58 DC Hydralazine HCl (Apresoline) 25 mg BID PO 02/11/21 21:00 02/14/21 08:18 Levothyroxine Sodium (Synthroid) 75 mcg DAILY@0600 PO 02/12/21 06:00 02/14/21 06:06 Magnesium Hydroxide (Milk Of Magnesia) 30 ml DAILYPRN PRN PO CONSTIPATION 02/11/21 14:55 02/13/21 20:02 Mirtazapine (Remeron) 7.5 mg QHS PO 02/11/21 21:00 02/13/21 20:00 Nebivolol (Bystolic) 5 mg DAILY PO 02/12/21 09:00 02/14/21 08:18 Omeprazole (PriLOSEC) 20 mg DAILY PO 02/12/21 09:00 02/14/21 08:18 Risperidone (RisperDAL) 2 mg QHS PO 02/13/21 21:00 02/14/21 10:26 DC 02/13/21 20:00 Sertraline HCl (Zoloft) 25 mg DAILY PO 02/14/21 09:00 02/14/21 08:18 Trazodone HCl (Desyrel) 50 mg QHSP PRN PO INSOMNIA 02/11/21 14:55 Allergies Coded Allergies: amlodipine (Verified Adverse Reaction, Intermediate, 05/09/20) ankle swelling erythromycin base (Verified Adverse Reaction, Mild, 05/09/20) dizziness lisinopril (Verified Adverse Reaction, Mild, 05/09/20) tinnitus losartan (Verified Adverse Reaction, Mild, 05/09/20) muscle weakness rosuvastatin (Verified Adverse Reaction, Mild, 05/09/20) confusion valsartan (Verified Adverse Reaction, Mild, 05/09/20) muscle weakness PATRICK PTAE DEVELOPMENT GEOLOGIST Feb 14, 2021 16:15
[2021-02-14 18:42] VITALS: BP 144/76
[2021-02-14] MEDS: MIRTAZAPINE 7.5MG PER 1/2 TABLET PO SCH (20:10)
[2021-02-14] MEDS ORDERED: ARIPiprazole 2 MG TAB PO SCH (21:00)
[2021-02-15] MEDS: LEVOTHYROXINE 75MCG TABLET (0.075MG) PO SCH (06:29)
[2021-02-15 06:35] VITALS: BP 141/72
[2021-02-15] MEDS ORDERED: BENZ0.5T23 PO (08:37)
[2021-02-15] MEDS ORDERED: MIRT-62 PO (08:37)
[2021-02-15] MEDS ORDERED: SERT25TA21 PO (08:37)
[2021-02-15] MEDS ORDERED: ABIL1TAB13 PO (08:37)
[2021-02-15 08:46] VITALS: BP 123/66
[2021-02-15] MEDS: SERTRALINE HCL 25 MG TABLET PO SCH (08:46)
[2021-02-15] MEDS: NEBIVOLOL 5 MG TAB (BYSTOLIC) PO SCH (08:46)
[2021-02-15] MEDS: ASPIRIN 81 MG CHEW TABLET PO SCH (08:46)
[2021-02-15] MEDS: OMEPRAZOLE 20 MG CAP PO SCH (08:46)
[2021-02-15] MEDS: **hydrALAZINE HCL** 25 MG TAB PO SCH (08:47)
--- NOTE | 2021-02-15 10:04 | MHDSPDOC ---
[facility] Discharge Summary Discharge Summary DATE OF ADMISSION: Feb 11, 2021 at 18:40 DATE OF DISCHARGE: February 15, 2021 at 0955 DISCHARGE DIAGNOSES: Major depressive disorder, recurrent, severe with psychotic features s/p suicide attempt by overdose Hypothyroid Hypertension REASON FOR ADMISSION: Patient is a 80 year old Single, Retired, Domiciled female who was medically stabilized on medicine status post a suicide attempt by overdose of her medications. She reports that she cannot remember if it was an actual suicide attempt. Reports that command hallucinations were telling her to do it. She has been hearing these voices for many months. States that "Arjun" her auditory hallucinations wakes her up and won't leave her alone. She also complained of poor sleep. Patient has a number of psychiatric admissions to this facility and has had past overdoses. Patient had recently filled her medications and empty bottles lying beside her. She had called her brother stating that she was not feeling well, he found her and he called EMS. Reports depression because of COVID, not being able to see her family. Reported depressive symptoms of: Depressed mood, poor appetite, poor sleep, poor energy, weight loss, suicidal ideation, auditory hallucinations, feelings of isolation CONSULTANTS INVOLVED: See Medical H + P by Hospitalist TREATMENT AND PROGRESS ON THE UNIT: Patient was admitted to the [facility] on a 9.39 legal status he was afforded the following treatment modalities: 1) Individual Therapy 2) Group Therapy 3) Medication Management 4) Milieu Therapy 5) Safe Environment HOSPITAL COURSE: Patient was initially admitted to medical for her overdose on her medications. She had reported that was depressed because she had been unable to see her relatives. Once she was medically stable she was admitted to [facility] on a 9.39 legal status and was continued on her home medications. During her hospitalization she was initially isolative and withdrawn but subsequently more visible on the unit. She preferred to stay to herself, but cooperative in the milieu. Patient was quite motivated to return to the Assisted Living, she had complained about a long stay at a [facility] where she had complained of her depression becoming more intense. She had reported that her voice named Octaviano had become a nuisance to her around 7-9 months ago. She reported yesterday that she was hearing less of this voice. She was initially started on Risperdal which she complained of. She states that she had restless muscle movements. Risperdal was discontinued and Abilify 2 mg HS was started, patient has had this medication in the past. Patient denies any suicidal thinking, planning or intent and reports that she can be safe for discharge and contracts for safety. She did not have any continued endorsement of wanting to or kill herself while hospitalized. She did not make any attempts of self harm. What she did talk about was feeling like she had lost her supports/family during COVID and she felt lonely but she is very motivated to return to the Assisted Living as she does not want to continue to be in the hospital. She states she is ready for "feelings of being at home." DISCHARGE ASSESSMENT: In today's interview, patient is alert and oriented, pts dress is appropriate. Hygiene and grooming is well-kempt. Denies depression and anxiety. Denies suicidal and homicidal ideation, planning or intent. Denies and is not observed with janet, psychotic symptoms of delusions, bizarre thinking, obsessions, paranoia, ruminations illogical thoughts, flight of ideas or having poor insight and judgement. Patient has normal mentation, declines further hospitalization on a voluntary status and meets criteria for discharge today. MENTAL STATUS EXAMINATION ON DISCHARGE: Patient is a 80 year old Single, Retired, Domiciled female who was medically stabilized on medicine status post a suicide attempt by overdose of her medications. Speech: Is clear, spontaneous, normal rate, tone and volume. Language skills are intact Thought processes including: linear and goal oriented Thought content: mild depression and anxiety, currently denying suicidal thinking Abstract reasoning, and computation: fair Description of associations: none observed Description of abnormal or psychotic thoughts: hearing a voice "Arjun" he told her to kill herself, still hears his voice but she is denying having suicidal thinking Judgment: fair to good Insight: fair to good Orientation: alert and oriented Recent and remote memory: intact Attention span and concentration: fair Language: expansive Fund of knowledge: average Mood: Euthymic/Drowsy Affect: Congruent with mood but mildly drowsy MEDICATIONS ON DISCHARGE: See Reconciliation PLAN/FOLLOWUP ARRANGEMENTS: Patient is being discharged to her Assisted Living Home - she is following up with [facility] The amount of time spent in the coordination of care for this patient was approximately 25 minutes. ETOH/Disorder Med Rx ETOH/DRUG DISORDER RX: N/A Vital Signs/I&Os Vital Signs Date Time Temp Pulse Resp B/P (MAP) Pulse Ox O2 Delivery O2 Flow Rate FiO2 02/15/21 08:46 94 123/66 02/15/21 06:35 97.2 16 97 Room Air Medications Scheduled Aripiprazole (Abilify) 2 Mg Tablet, 2 MG PO QHS for Hallucinations, #7 Aspirin (Aspirin) 81 Mg Chw, 81 MG PO DAILY, (Reported) Diltiazem Hcl (Diltiazem 24Hr ER) 240 Mg Cap.sa.24h, 240 MG PO DAILY, (Reported) Hydralazine HCl (Hydralazine HCl) 25 Mg Tablet, 25 MG PO BID, (Reported) Levothyroxine Sodium (Levothyroxine Sodium) 75 Mcg Tab, 75 MCG PO DAILY, (Rep orted) Mirtazapine (Remeron) 15 Mg Tablet, 7.5 MG PO QHS for Insomnia, #4 Take 1/2 tablet at bedtime Nebivolol HCl (Bystolic) 5 Mg Tablet, 5 MG PO DAILY, (Reported) Omeprazole (Omeprazole) 20 Mg Capsule.dr, 20 MG PO DAILY, (Reported) Sertraline HCl (Sertraline HCl) 25 Mg Tablet, 25 MG PO DAILY for Depression, #7 Scheduled PRN Benztropine Mesylate (Benztropine Mesylate) 0.5 Mg Tablet, 0.5 MG PO BIDP PRN for EPS, #14 Allergies Coded Allergies: amlodipine (Verified Adverse Reaction, Intermediate, 05/09/20) ankle swelling erythromycin base (Verified Adverse Reaction, Mild, 05/09/20) dizziness lisinopril (Verified Adverse Reaction, Mild, 05/09/20) tinnitus losartan (Verified Adverse Reaction, Mild, 05/09/20) muscle weakness rosuvastatin (Verified Adverse Reaction, Mild, 05/09/20) confusion valsartan (Verified Adverse Reaction, Mild, 05/09/20) muscle weakness PATRICK PATE NP Feb 15, 2021 09:55
== END 2021-02-15 12:38 | disposition home or self-care (01) | DRG 885 ==
LOC: M PSY 18:40
PROVIDERS: ADMIT Psychiatry & Neurology Psychiatry; ATTEND Psychiatry & Neurology Psychiatry
DX: F33.3 Major depressive disorder, recurrent, severe with psychotic symptoms (principal); E03.9 Hypothyroidism, unspecified; I10 Essential (primary) hypertension; Z79.899 Other long term (current) drug therapy; Z79.82 Long term (current) use of aspirin; Z88.8 Allergy status to other drugs, medicaments and biological substances; E78.5 Hyperlipidemia, unspecified; F41.1 Generalized anxiety disorder; K21.9 Gastro-esophageal reflux disease without esophagitis

== ENCOUNTER → 2021-09-09 | Outpatient (CLI) | payer MEDICARE, OTHER ==
[~2021-09-09] MED LIST changes: +ABIL1TAB13 PO; +BENZ0.5T23 PO; +MIRT-62 PO; +SERT25TA21 PO
[2021-09-09 11:27] LABS: BASO # 0.1 10^3/uL (0.0-0.2); BASO % 0.8 % (0.0-1.0); EOS # 0.3 10^3/uL (0.0-0.5); HEMATOCRIT 44.5 % (36.0-47.0); HEMOGLOBIN 14.1 g/dl (12.0-15.5); LYMPH # 2.9 10^3/uL (1.5-5.0); LYMPH % 38.5 % (24.0-44.0); MEAN CORPUSCULAR HGB CONC 31.7 g/dl (32.0-36.5); MEAN CORPUSCULAR VOLUME 88.5 fl (80.0-96.0); MONO # 0.7 10^3/uL (0.0-0.8); MONO % 8.8 % (2.0-8.0); NEUTROPHILS # 3.6 10^3/uL (1.5-8.5); NEUTROPHILS % 47.6 % (36.0-66.0); PLATELET COUNT, AUTOMATED 257 10^3/uL (150-450); RED BLOOD COUNT 5.03 10^6/uL (4.00-5.40); WHITE BLOOD COUNT 7.5 10^3/uL (4.0-10.0)
[2021-09-09 11:57] LABS: ALBUMIN 3.5 GM/DL (3.2-5.2); ALT/SGPT 24 U/L (12-78); BILIRUBIN,TOTAL 0.6 MG/DL (0.2-1.0); BLOOD UREA NITROGEN 16 MG/DL (7-18); CALCIUM LEVEL 9.2 MG/DL (8.8-10.2); CARBON DIOXIDE LEVEL 29 MEQ/L (21-32); CHLORIDE LEVEL 107 MEQ/L (98-107); CHOLESTEROL LEVEL 194 MG/DL (<200); CHOLESTEROL RISK RATIO 4.409 (<5); CREATININE FOR GFR 0.92 MG/DL (0.55-1.30); FREE T4 1.09 NG/DL (0.76-1.46); GLOMERULAR FILTRATION RATE > 60.0 (>32); GLUCOSE, FASTING 95 MG/DL (70-100); HDL CHOLESTEROL 44 MG/DL (>40); LDL CHOLESTEROL 115 MG/DL (<100); NON-HDL-C 150 MG/DL; POTASSIUM SERUM 4.2 MEQ/L (3.5-5.1); SODIUM LEVEL 141 MEQ/L (136-145); TOTAL PROTEIN 7.3 GM/DL (6.4-8.2); TRIGLYCERIDES LEVEL 173 MG/DL (<150)
== END ==
LOC: M PLALAB 07:54
PROVIDERS: ATTEND Family Medicine
DX: F41.1 Generalized anxiety disorder (principal); E78.2 Mixed hyperlipidemia; K21.9 Gastro-esophageal reflux disease without esophagitis

== ENCOUNTER 2021-11-21 10:27 | Emergency (ER) | payer MEDICARE, OTHER ==
[~2021-11-21] VITALS: Ht 160 cm; Wt 87.5 kg
[~2021-11-21 10:27] MED LIST changes: +LOSA100T45 PO; -LOSA100T50 PO; +OMEP-173 PO; -OMEP-218 PO
[2021-11-21] MEDS ORDERED: RISP0.253 (10:57)
[2021-11-21 11:51] LABS: HEMATOCRIT 44.1 % (36.0-47.0); HEMOGLOBIN 14.3 g/dl (12.0-15.5); MEAN CORPUSCULAR HEMOGLOBIN 28.6 pg (27.0-33.0); MEAN CORPUSCULAR HGB CONC 32.4 g/dl (32.0-36.5); MEAN CORPUSCULAR VOLUME 88.2 fl (80.0-96.0); PLATELET COUNT, AUTOMATED 250 10^3/uL (150-450); WHITE BLOOD COUNT 7.2 10^3/uL (4.0-10.0)
[2021-11-21 12:27] LABS: ACETAMINOPHEN LEVEL < 2.0 UG/ML (10.0-30.0); ALBUMIN 3.7 GM/DL (3.2-5.2); ALT/SGPT 28 U/L (12-78); BILIRUBIN,DIRECT < 0.1 MG/DL (0.0-0.2); BILIRUBIN,TOTAL 0.3 MG/DL (0.2-1.0); BLOOD UREA NITROGEN 16 MG/DL (7-18); CALCIUM LEVEL 9.2 MG/DL (8.8-10.2); CARBON DIOXIDE LEVEL 26 MEQ/L (21-32); CHLORIDE LEVEL 109 MEQ/L (98-107); CREATININE FOR GFR 0.99 MG/DL (0.55-1.30); ETHYL ALCOHOL (ETHANOL) < 0.003 % (0.000-0.010); GLOMERULAR FILTRATION RATE 57.5 (>32); GLUCOSE, FASTING 147 MG/DL (70-100); POTASSIUM SERUM 4.1 MEQ/L (3.5-5.1); SALICYLATE LEVEL < 1.7 MG/DL (5.0-30.0); SODIUM LEVEL 142 MEQ/L (136-145); TOTAL PROTEIN 7.6 GM/DL (6.4-8.2)
[2021-11-21 20:41] LABS: AMPHETAMINES LEVEL URINE NEGATIVE (NEGATIVE); BARBITURATES URINE NEGATIVE (NEGATIVE); BENZODIAZEPINES URINE NEGATIVE (NEGATIVE); CANNABINOIDS URINE NEGATIVE (NEGATIVE); COCAINE METABOLITE URINE NEGATIVE (NEGATIVE); METHADONE URINE NEGATIVE (NEGATIVE); OPIATES URINE NEGATIVE (NEGATIVE); PHENCYCLIDINE URINE NEGATIVE (NEGATIVE)
[2021-11-21] MEDS ORDERED: ACET-907 PO (22:20)
[2021-11-21] MEDS ORDERED: MIRT-62 PO (22:20)
[2021-11-21] MEDS ORDERED: BENZ0.5T23 PO (22:20)
[2021-11-21] MEDS ORDERED: SERT25TA21 PO (22:20)
[2021-11-21] MEDS ORDERED: RISP0.253 PO (22:20)
[2021-11-21] MEDS ORDERED: HOME MED LIST COMPLETE! XX SCH (22:25)
[2021-11-22] MEDS ORDERED: **hydrALAZINE HCL** 25 MG TAB PO ONE (00:30)
[2021-11-22] MEDS ORDERED: risperiDONE 0.5 MG TAB PO ONE (00:30)
[2021-11-22] MEDS ORDERED: MIRTAZAPINE 15 MG TAB PO STA (01:14)
[2021-11-22] MEDS ORDERED: NITROFURANTOIN (MACROBID) 100 MG CAP PO ONE ×2 (02:10→09:00)
[2021-11-22] MEDS ORDERED: LEVOTHYROXINE 75MCG TABLET (0.075MG) PO SCH (06:00)
[2021-11-22] MEDS ORDERED: ACETAMINOPHEN TAB 650MG DOSE (2X325MG) PO PRN (07:50)
[2021-11-22] MEDS ORDERED: PILL CUTTER 1 EACH XX PRN (08:25)
[2021-11-22] MEDS ORDERED: NITROFURANTOIN (MACROBID) 100 MG CAP PO SCH (09:00)
[2021-11-22] MEDS ORDERED: SERTRALINE HCL 25 MG TABLET PO SCH (09:00)
[2021-11-22] MEDS ORDERED: **hydrALAZINE HCL** 25 MG TAB PO SCH (09:00)
[2021-11-22] MEDS ORDERED: risperiDONE 0.5 MG TAB PO SCH (09:00)
[2021-11-22] MEDS ORDERED: ASPIRIN 81MG ENTERIC TABLET PO SCH (09:00)
[2021-11-22] MEDS ORDERED: CEFDINIR 300 MG CAP (OMNICEF) PO SCH (09:00)
[2021-11-22] MEDS ORDERED: NEBIVOLOL 5 MG TAB (BYSTOLIC) PO SCH (09:00)
[2021-11-22] MEDS ORDERED: OMEPRAZOLE 20 MG CAP PO SCH (09:00)
[2021-11-22 14:07] VITALS: BP 135/64
[2021-11-22] MEDS ORDERED: MIRTAZAPINE 7.5MG PER 1/2 TABLET PO ONE (21:00)
[2021-11-22] MEDS ORDERED: MIRTAZAPINE 15 MG TAB PO SCH (21:00)
== END 2021-11-22 14:12 ==
LOC: M ED 10:27
DX: F32.A Depression, unspecified (principal); R44.0 Auditory hallucinations; N39.0 Urinary tract infection, site not specified; I10 Essential (primary) hypertension; K21.9 Gastro-esophageal reflux disease without esophagitis; E78.5 Hyperlipidemia, unspecified; Z88.8 Allergy status to other drugs, medicaments and biological substances; Z79.82 Long term (current) use of aspirin; Z79.899 Other long term (current) drug therapy

== ENCOUNTER → 2021-12-11 | Outpatient (CLI) | payer MEDICARE, OTHER ==
[~2021-12-11] MED LIST changes: +ACET-907 PO; +RISP0.253; +RISP0.253 PO
[2021-12-11 15:50] LABS: APPEARANCE, URINE CLEAR (CLEAR); BACTERIA, URINE AUTO NEGATIVE (NEGATIVE); BILIRUBIN, URINE AUTO NEGATIVE (NEGATIVE); BLOOD, URINE BLOOD NEGATIVE (NEGATIVE); COLOR, URINE STRAW (YELLOW); GLUCOSE, URINE (UA) AUTO NEGATIVE (NEGATIVE); KETONE, URINE AUTO NEGATIVE (NEGATIVE); LEUKOCYTE ESTERASE, URINE AUTO NEGATIVE (NEGATIVE); MUCUS, URINE SMALL (NEGATIVE); NITRITE, URINE AUTO NEGATIVE (NEGATIVE); PROTEIN, URINE AUTO NEGATIVE (NEGATIVE); RBC, URINE AUTO 0 /HPF (0-3); SPECIFIC GRAVITY URINE AUTO 1.004 (1.002-1.035); SQUAMOUS EPITHELIAL CELL UR AU 0 /HPF (0-6); UROBILINOGEN, URINE AUTO 0.2 mg/dL (0.0-2.0); WBC, URINE AUTO 1 /HPF (0-3)
[2021-12-11 15:52] LABS: BASO # 0.1 10^3/uL (0.0-0.2); BASO % 0.6 % (0.0-1.0); EOS # 0.1 10^3/uL (0.0-0.5); EOS % 1.5 % (0.0-3.0); HEMATOCRIT 44.4 % (36.0-47.0); HEMOGLOBIN 14.2 g/dl (12.0-15.5); LYMPH # 3.1 10^3/uL (1.5-5.0); LYMPH % 33.5 % (24.0-44.0); MEAN CORPUSCULAR HEMOGLOBIN 28.6 pg (27.0-33.0); MEAN CORPUSCULAR VOLUME 89.3 fl (80.0-96.0); MONO # 0.7 10^3/uL (0.0-0.8); MONO % 7.3 % (2.0-8.0); NEUTROPHILS # 5.3 10^3/uL (1.5-8.5); NEUTROPHILS % 56.9 % (36.0-66.0); PLATELET COUNT, AUTOMATED 276 10^3/uL (150-450); RED BLOOD COUNT 4.97 10^6/uL (4.00-5.40); WHITE BLOOD COUNT 9.3 10^3/uL (4.0-10.0)
[2021-12-11 16:14] LABS: BLOOD UREA NITROGEN 15 MG/DL (7-18); CALCIUM LEVEL 9.5 MG/DL (8.8-10.2); CARBON DIOXIDE LEVEL 29 MEQ/L (21-32); CHLORIDE LEVEL 105 MEQ/L (98-107); CREATININE FOR GFR 0.89 MG/DL (0.55-1.30); GLOMERULAR FILTRATION RATE > 60.0 (>32); GLUCOSE, FASTING 87 MG/DL (70-100); POTASSIUM SERUM 4.1 MEQ/L (3.5-5.1); SODIUM LEVEL 139 MEQ/L (136-145)
== END ==
LOC: M PLALAB 14:22
PROVIDERS: ATTEND Nurse Practitioner Adult Health
DX: R44.0 Auditory hallucinations (principal); Z87.440 Personal history of urinary (tract) infections; Z79.899 Other long term (current) drug therapy

== ENCOUNTER → 2022-01-07 | Outpatient (REF) | payer MEDICARE, OTHER | LOC: M LAB REF 12:47 | PROVIDERS: ATTEND Nurse Practitioner Adult Health | DX: R19.7 Diarrhea, unspecified (principal) ==

== ENCOUNTER 2022-04-18 07:43 | Emergency (ER) | payer MEDICARE, OTHER ==
[~2022-04-18] VITALS: Ht 160 cm; Wt 81.8 kg
[2022-04-18] MEDS ORDERED: NEBIVOLOL 5 MG TAB (BYSTOLIC) PO STA (08:06)
[2022-04-18] MEDS ORDERED: **hydrALAZINE HCL** 25 MG TAB PO ONE (08:10)
[2022-04-18 08:36] LABS: BASO % 0.5 % (0.0-1.0); EOS # 0.1 10^3/uL (0.0-0.5); EOS % 1.8 % (0.0-3.0); HEMATOCRIT 44.4 % (36.0-47.0); HEMOGLOBIN 14.2 g/dl (12.0-15.5); LYMPH # 1.9 10^3/uL (1.5-5.0); LYMPH % 24.7 % (24.0-44.0); MEAN CORPUSCULAR HEMOGLOBIN 28.5 pg (27.0-33.0); MEAN CORPUSCULAR VOLUME 89.2 fl (80.0-96.0); MONO # 0.6 10^3/uL (0.0-0.8); MONO % 7.7 % (2.0-8.0); NEUTROPHILS # 5.1 10^3/uL (1.5-8.5); NEUTROPHILS % 64.9 % (36.0-66.0); PLATELET COUNT, AUTOMATED 215 10^3/uL (150-450); RED BLOOD COUNT 4.98 10^6/uL (4.00-5.40); WHITE BLOOD COUNT 7.8 10^3/uL (4.0-10.0)
[2022-04-18 09:05] LABS: RSV AMPLIFICATION NEGATIVE (NEGATIVE)
[2022-04-18 09:10] LABS: CK-MB VALUE MASS < 1.0 NG/ML (<3.6); CPK CREATINE PHOSPHOKINASE 139 U/L (26-192); MB/CK RELATIVE INDEX 0.72 (< OR =4)
[2022-04-18 09:16] LABS: ALBUMIN 3.5 GM/DL (3.2-5.2); ALT/SGPT 26 U/L (12-78); BILIRUBIN,DIRECT < 0.1 MG/DL (0.0-0.2); BILIRUBIN,TOTAL 0.5 MG/DL (0.2-1.0); BLOOD UREA NITROGEN 12 MG/DL (7-18); CALCIUM LEVEL 9.2 MG/DL (8.8-10.2); CARBON DIOXIDE LEVEL 23 MEQ/L (21-32); CHLORIDE LEVEL 108 MEQ/L (98-107); CREATININE FOR GFR 1.01 MG/DL (0.55-1.30); FREE T4 1.15 NG/DL (0.76-1.46); GLOMERULAR FILTRATION RATE 56.1 (>32); GLUCOSE, FASTING 100 MG/DL (70-100); NT-PRO BNP 55 PG/ML (<450); POTASSIUM SERUM 4.6 MEQ/L (3.5-5.1); SODIUM LEVEL 140 MEQ/L (136-145); TOTAL PROTEIN 7.2 GM/DL (6.4-8.2)
[2022-04-18 10:50] VITALS: BP 170/71
== END 2022-04-18 11:09 | disposition home or self-care (01) ==
LOC: M ED 07:43 → EDBD 07:43 → M ED 11:09
DX: R53.1 Weakness (principal); I10 Essential (primary) hypertension; K21.9 Gastro-esophageal reflux disease without esophagitis; F32.A Depression, unspecified; Z88.1 Allergy status to other antibiotic agents; Z88.8 Allergy status to other drugs, medicaments and biological substances; Z79.83 Long term (current) use of bisphosphonates; Z79.899 Other long term (current) drug therapy

== ENCOUNTER 2022-04-29 07:30 | Emergency (ER) | payer MEDICARE, OTHER ==
[~2022-04-29] VITALS: Ht 160 cm; Wt 81.8 kg
[2022-04-29] MEDS ORDERED: PANT40TA29 PO (08:34)
[2022-04-29] MEDS ORDERED: ARIP1TAB4 (08:34)
[2022-04-29] MEDS ORDERED: B-12100021 PO (08:34)
[2022-04-29] MEDS ORDERED: ALBU8.5H (08:34)
[2022-04-29] MEDS ORDERED: VITA100093 PO (08:34)
[2022-04-29] MEDS ORDERED: CEFD300C41 PO (08:34)
[2022-04-29] MEDS ORDERED: MUCI600T31 PO (08:34)
[2022-04-29 08:58] LABS: BASO # 0.1 10^3/uL (0.0-0.2); BASO % 0.6 % (0.0-1.0); EOS # 0.1 10^3/uL (0.0-0.5); HEMATOCRIT 46.3 % (36.0-47.0); HEMOGLOBIN 14.9 g/dl (12.0-15.5); LYMPH # 1.8 10^3/uL (1.5-5.0); LYMPH % 23.1 % (24.0-44.0); MEAN CORPUSCULAR HEMOGLOBIN 29.1 pg (27.0-33.0); MEAN CORPUSCULAR HGB CONC 32.2 g/dl (32.0-36.5); MEAN CORPUSCULAR VOLUME 90.4 fl (80.0-96.0); MONO # 0.6 10^3/uL (0.0-0.8); MONO % 6.9 % (2.0-8.0); NEUTROPHILS # 5.4 10^3/uL (1.5-8.5); PLATELET COUNT, AUTOMATED 230 10^3/uL (150-450); RED BLOOD COUNT 5.12 10^6/uL (4.00-5.40); WHITE BLOOD COUNT 7.9 10^3/uL (4.0-10.0)
[2022-04-29] MEDS ORDERED: **hydrALAZINE HCL** 25 MG TAB PO ONE (10:05)
[2022-04-29 10:16] VITALS: BP 201/93
[2022-04-29 10:34] LABS: ALBUMIN 3.6 GM/DL (3.2-5.2); BILIRUBIN,DIRECT 0.2 MG/DL (0.0-0.2); BILIRUBIN,TOTAL 0.4 MG/DL (0.2-1.0); CALCIUM LEVEL 9.6 MG/DL (8.8-10.2); GLOMERULAR FILTRATION RATE 56.6 (>32); POTASSIUM SERUM 4.1 MEQ/L (3.5-5.1); THYROID STIMULATING HORMONE 1.82 uIU/ML (0.358-3.740); TOTAL PROTEIN 7.3 GM/DL (6.4-8.2)
[2022-04-29 11:30] VITALS: BP 162/72
== END 2022-04-29 12:05 | disposition home or self-care (01) ==
LOC: EDBD 07:30 → EDUNIT# 07:30 → M ED 07:30
DX: R25.1 Tremor, unspecified (principal); I10 Essential (primary) hypertension; E78.5 Hyperlipidemia, unspecified; K21.9 Gastro-esophageal reflux disease without esophagitis; E03.9 Hypothyroidism, unspecified; F32.A Depression, unspecified; Z88.1 Allergy status to other antibiotic agents; Z88.8 Allergy status to other drugs, medicaments and biological substances; Z79.51 Long term (current) use of inhaled steroids; Z79.899 Other long term (current) drug therapy

== ENCOUNTER → 2022-05-13 | Outpatient (CLI) | payer MEDICARE, OTHER ==
[~2022-05-13] MED LIST changes: +ALBU8.5H; +ARIP1TAB4; +B-12100021 PO; +CEFD300C41 PO; +MUCI600T31 PO; +PANT40TA29 PO; +VITA100093 PO
[2022-05-13 10:46] LABS: BASO # 0.1 10^3/uL (0.0-0.2); BASO % 0.6 % (0.0-1.0); EOS # 0.1 10^3/uL (0.0-0.5); EOS % 0.9 % (0.0-3.0); HEMATOCRIT 47.6 % (36.0-47.0); HEMOGLOBIN 15.5 g/dl (12.0-15.5); LYMPH # 2.1 10^3/uL (1.5-5.0); MEAN CORPUSCULAR HEMOGLOBIN 29.5 pg (27.0-33.0); MEAN CORPUSCULAR HGB CONC 32.6 g/dl (32.0-36.5); MEAN CORPUSCULAR VOLUME 90.5 fl (80.0-96.0); MONO # 0.7 10^3/uL (0.0-0.8); MONO % 6.8 % (2.0-8.0); NEUTROPHILS # 6.9 10^3/uL (1.5-8.5); NEUTROPHILS % 70.5 % (36.0-66.0); PLATELET COUNT, AUTOMATED 253 10^3/uL (150-450); RED BLOOD COUNT 5.26 10^6/uL (4.00-5.40); WHITE BLOOD COUNT 9.8 10^3/uL (4.0-10.0)
[2022-05-13 11:27] LABS: ALBUMIN 4.1 GM/DL (3.2-5.2); BILIRUBIN,TOTAL 0.6 MG/DL (0.2-1.0); CALCIUM LEVEL 9.8 MG/DL (8.8-10.2); CHOLESTEROL RISK RATIO 3.087 (<5); CREATININE FOR GFR 1.19 MG/DL (0.55-1.30); GLOMERULAR FILTRATION RATE 46.3 (>32); POTASSIUM SERUM 4.3 MEQ/L (3.5-5.1); TOTAL PROTEIN 8.1 GM/DL (6.4-8.2)
[2022-05-13 11:28] LABS: FREE T4 1.34 NG/DL (0.76-1.46); THYROID STIMULATING HORMONE 2.11 uIU/ML (0.358-3.740)
[2022-05-13 11:54] LABS: HEMOGLOBIN A1c 5.3 %
[2022-05-13 11:55] LABS: TOTAL 25(OH) VITAMIN D 37.5 NG/ML (30.0-100.0)
== END ==
LOC: M PLALAB 08:17
PROVIDERS: ATTEND Nurse Practitioner Adult Health
DX: E03.9 Hypothyroidism, unspecified (principal)

== ENCOUNTER 2022-05-18 15:56 | Emergency (ER) | payer MEDICARE, OTHER ==
[~2022-05-18] VITALS: Ht 160 cm; Wt 84.1 kg
[2022-05-18 16:32] LABS: BASO % 0.5 % (0.0-1.0); EOS # 0.1 10^3/uL (0.0-0.5); HEMATOCRIT 44.3 % (36.0-47.0); HEMOGLOBIN 14.4 g/dl (12.0-15.5); LYMPH # 2.2 10^3/uL (1.5-5.0); LYMPH % 25.4 % (24.0-44.0); MEAN CORPUSCULAR HGB CONC 32.5 g/dl (32.0-36.5); MEAN CORPUSCULAR VOLUME 89.3 fl (80.0-96.0); MONO # 0.6 10^3/uL (0.0-0.8); MONO % 6.5 % (2.0-8.0); NEUTROPHILS # 5.7 10^3/uL (1.5-8.5); NEUTROPHILS % 66.4 % (36.0-66.0); PLATELET COUNT, AUTOMATED 222 10^3/uL (150-450); RED BLOOD COUNT 4.96 10^6/uL (4.00-5.40); WHITE BLOOD COUNT 8.6 10^3/uL (4.0-10.0)
[2022-05-18 17:17] LABS: ALBUMIN 3.6 GM/DL (3.2-5.2); BILIRUBIN,DIRECT 0.2 MG/DL (0.0-0.2); BILIRUBIN,TOTAL 0.5 MG/DL (0.2-1.0); CALCIUM LEVEL 9.1 MG/DL (8.8-10.2); CREATININE FOR GFR 1.1 MG/DL (0.55-1.30); GLOMERULAR FILTRATION RATE 50.7 (>32); POTASSIUM SERUM 5.1 MEQ/L (3.5-5.1); THYROID STIMULATING HORMONE 2.67 uIU/ML (0.358-3.740); TOTAL PROTEIN 7.6 GM/DL (6.4-8.2)
[2022-05-18] MEDS ORDERED: **hydrALAZINE HCL** 25 MG TAB PO ONE (17:45)
[2022-05-18 18:26] VITALS: BP 162/74
== END 2022-05-18 18:41 | disposition home or self-care (01) ==
LOC: M ED 15:56 → EDBD 15:56 → EDSEX 15:56 → M ED 18:41
DX: R53.83 Other fatigue (principal); R25.1 Tremor, unspecified; R94.31 Abnormal electrocardiogram [ECG] [EKG]; I10 Essential (primary) hypertension; K21.9 Gastro-esophageal reflux disease without esophagitis; E78.5 Hyperlipidemia, unspecified; E03.9 Hypothyroidism, unspecified; Z79.51 Long term (current) use of inhaled steroids; Z79.899 Other long term (current) drug therapy; Z88.8 Allergy status to other drugs, medicaments and biological substances

== ENCOUNTER 2022-12-22 10:27 | Emergency (ER) | payer MEDICARE, OTHER ==
[~2022-12-22] VITALS: Ht 157.5 cm; Wt 80.4 kg
[2022-12-22] MEDS ORDERED: LABETALOL 100MG/20ML VIAL IV STA (11:07)
[2022-12-22] MEDS ORDERED: NS 1,000 ML IV SCH (11:10)
[2022-12-22 12:28] LABS: BASO # 0.1 10^3/uL (0.0-0.2); BASO % 0.5 % (0.0-1.0); EOS % 0.4 % (0.0-3.0); HEMATOCRIT 44.7 % (36.0-47.0); HEMOGLOBIN 14.4 g/dl (12.0-15.5); LYMPH # 1.7 10^3/uL (1.5-5.0); LYMPH % 18.3 % (24.0-44.0); MEAN CORPUSCULAR HEMOGLOBIN 29.3 pg (27.0-33.0); MEAN CORPUSCULAR HGB CONC 32.2 g/dl (32.0-36.5); MEAN CORPUSCULAR VOLUME 90.9 fl (80.0-96.0); MONO # 0.6 10^3/uL (0.0-0.8); MONO % 6.1 % (2.0-8.0); NEUTROPHILS # 7.1 10^3/uL (1.5-8.5); NEUTROPHILS % 74.2 % (36.0-66.0); PLATELET COUNT, AUTOMATED 241 10^3/uL (150-450); RED BLOOD COUNT 4.92 10^6/uL (4.00-5.40); WHITE BLOOD COUNT 9.5 10^3/uL (4.0-10.0)
[2022-12-22 13:00] LABS: ALBUMIN 3.8 G/DL (3.2-5.2); BILIRUBIN,DIRECT 0.1 MG/DL (<0.4); BILIRUBIN,TOTAL 0.3 MG/DL (0.3-1.2); CALCIUM LEVEL 9.7 MG/DL (8.3-10.6); CREATININE FOR GFR 0.96 MG/DL (0.55-1.30); GLOMERULAR FILTRATION RATE 59.4 (>32); POTASSIUM SERUM 4.3 MMOL/L (3.5-5.1); THYROID STIMULATING HORMONE 2.418 uIU/ML (0.55-4.78); TOTAL PROTEIN 7.7 G/DL (5.7-8.2)
[2022-12-22 13:16] VITALS: BP 157/70
== END 2022-12-22 14:34 | disposition home or self-care (01) ==
LOC: M ED 10:27
DX: B34.8 Other viral infections of unspecified site (principal); R53.1 Weakness; I49.1 Atrial premature depolarization; I44.4 Left anterior fascicular block; I10 Essential (primary) hypertension; K21.9 Gastro-esophageal reflux disease without esophagitis; K44.9 Diaphragmatic hernia without obstruction or gangrene; Z88.8 Allergy status to other drugs, medicaments and biological substances; Z88.1 Allergy status to other antibiotic agents; Z79.52 Long term (current) use of systemic steroids; Z79.899 Other long term (current) drug therapy

== ENCOUNTER → 2023-01-02 | Outpatient (CLI) | payer MEDICARE, OTHER ==
[2023-01-02 10:44] LABS: BASO % 0.5 % (0.0-1.0); EOS # 0.1 10^3/uL (0.0-0.5); HEMATOCRIT 47.3 % (36.0-47.0); LYMPH % 26.3 % (24.0-44.0); MEAN CORPUSCULAR HEMOGLOBIN 29.4 pg (27.0-33.0); MEAN CORPUSCULAR HGB CONC 31.7 g/dl (32.0-36.5); MEAN CORPUSCULAR VOLUME 92.6 fl (80.0-96.0); MONO # 0.6 10^3/uL (0.0-0.8); MONO % 7.3 % (2.0-8.0); NEUTROPHILS % 64.6 % (36.0-66.0); PLATELET COUNT, AUTOMATED 243 10^3/uL (150-450); RED BLOOD COUNT 5.11 10^6/uL (4.00-5.40); WHITE BLOOD COUNT 7.7 10^3/uL (4.0-10.0)
[2023-01-02 11:19] LABS: THYROID STIMULATING HORMONE 2.362 uIU/ML (0.55-4.78); TOTAL 25(OH) VITAMIN D 58.6 NG/ML (20.0-100.0)
[2023-01-02 11:21] LABS: ALBUMIN 4.1 G/DL (3.2-5.2); BILIRUBIN,TOTAL 0.7 MG/DL (0.3-1.2); CALCIUM LEVEL 9.5 MG/DL (8.3-10.6); CHOLESTEROL RISK RATIO 3.28 (<5); FREE T4 1.32 NG/DL (0.89-1.76); GLOMERULAR FILTRATION RATE 56.6 (>32); HDL CHOLESTEROL 56.3 MG/DL (>40); LDL CHOLESTEROL 102.7 MG/DL (<100); POTASSIUM SERUM 4.3 MMOL/L (3.5-5.1); TOTAL PROTEIN 7.4 G/DL (5.7-8.2)
== END ==
LOC: M PLALAB 08:26
PROVIDERS: ATTEND Family Medicine
DX: I10 Essential (primary) hypertension (principal); E03.9 Hypothyroidism, unspecified; E78.2 Mixed hyperlipidemia; E55.9 Vitamin D deficiency, unspecified

== ENCOUNTER → 2023-03-24 | Outpatient (CLI) | payer MEDICARE, OTHER ==
[~2023-03-24] MED LIST changes: +BENZ0.5T2 PO; -BENZ0.5T23 PO; -DILT1CAP5 PO; +DILT240C41 PO; -LOSA100T45 PO; +LOSA100T46 PO
== END ==
LOC: M WUC 12:22
PROVIDERS: ATTEND Nurse Practitioner Family
DX: R05.9 Cough, unspecified (principal)

== ENCOUNTER → 2023-05-13 | Outpatient (CLI) | payer MEDICARE, OTHER ==
[2023-05-13 10:27] LABS: BASO # 0.1 10^3/uL (0.0-0.2); BASO % 0.7 % (0.0-1.0); EOS % 0.5 % (0.0-3.0); HEMATOCRIT 42.7 % (36.0-47.0); HEMOGLOBIN 13.7 g/dl (12.0-15.5); LYMPH # 2.1 10^3/uL (1.5-5.0); LYMPH % 28.1 % (24.0-44.0); MEAN CORPUSCULAR HEMOGLOBIN 29.5 pg (27.0-33.0); MEAN CORPUSCULAR HGB CONC 32.1 g/dl (32.0-36.5); MONO # 0.5 10^3/uL (0.0-0.8); MONO % 6.9 % (2.0-8.0); NEUTROPHILS # 4.7 10^3/uL (1.5-8.5); NEUTROPHILS % 63.5 % (36.0-66.0); PLATELET COUNT, AUTOMATED 220 10^3/uL (150-450); RED BLOOD COUNT 4.64 10^6/uL (4.00-5.40); WHITE BLOOD COUNT 7.4 10^3/uL (4.0-10.0)
[2023-05-13 10:52] LABS: FREE T4 1.16 NG/DL (0.89-1.76); PERCENT SATURATION 17.3 % (13.2-45.0)
[2023-05-13 10:53] LABS: FERRITIN 56.8 NG/ML (7.3-270.7); THYROID STIMULATING HORMONE 1.792 uIU/ML (0.55-4.78)
== END ==
LOC: M PLALAB 08:45
PROVIDERS: ATTEND Family Medicine
DX: E03.9 Hypothyroidism, unspecified (principal)

== ENCOUNTER 2023-07-18 13:12 | Emergency (ER) | payer MEDICARE, OTHER ==
[~2023-07-18] VITALS: Ht 157.5 cm; Wt 77.0 kg
[~2023-07-18 13:12] MED LIST changes: -MIRT-62 PO; +MIRT-88 PO
[2023-07-18 14:57] LABS: BASO # 0.1 10^3/uL (0.0-0.2); BASO % 0.7 % (0.0-1.0); EOS % 0.5 % (0.0-3.0); HEMATOCRIT 42.1 % (36.0-47.0); HEMOGLOBIN 13.8 g/dl (12.0-15.5); LYMPH # 2.2 10^3/uL (1.5-5.0); LYMPH % 27.6 % (24.0-44.0); MEAN CORPUSCULAR HEMOGLOBIN 29.6 pg (27.0-33.0); MEAN CORPUSCULAR HGB CONC 32.8 g/dl (32.0-36.5); MEAN CORPUSCULAR VOLUME 90.3 fl (80.0-96.0); MONO # 0.6 10^3/uL (0.0-0.8); MONO % 7.3 % (2.0-8.0); NEUTROPHILS # 5.2 10^3/uL (1.5-8.5); NEUTROPHILS % 63.5 % (36.0-66.0); PLATELET COUNT, AUTOMATED 222 10^3/uL (150-450); RED BLOOD COUNT 4.66 10^6/uL (4.00-5.40); WHITE BLOOD COUNT 8.1 10^3/uL (4.0-10.0)
[2023-07-18 15:06] LABS: ALBUMIN 3.8 G/DL (3.2-5.2); ALKALINE PHOSPHATASE 69 U/L (46-116); ALT/SGPT 18 U/L (7.0-40); AST/SGOT 18 U/L (<34); BILIRUBIN,DIRECT 0.2 MG/DL (<0.4); BILIRUBIN,TOTAL 0.6 MG/DL (0.3-1.2); BLOOD UREA NITROGEN 14 MG/DL (9-23); CALCIUM LEVEL 9.2 MG/DL (8.3-10.6); CARBON DIOXIDE LEVEL 29 MMOL/L (20-31); CHLORIDE LEVEL 105 MMOL/L (98-107); CREATININE FOR GFR 0.88 MG/DL (0.55-1.30); GLOMERULAR FILTRATION RATE > 60.0 (>32); GLUCOSE, FASTING 97 MG/DL (74-106); POTASSIUM SERUM 4.2 MMOL/L (3.5-5.1); SODIUM LEVEL 142 MMOL/L (136-145); TOTAL PROTEIN 6.8 G/DL (5.7-8.2)
[2023-07-18 15:07] LABS: FREE T4 1.11 NG/DL (0.89-1.76)
[2023-07-18 15:08] LABS: RSV AMPLIFICATION NEGATIVE (NEGATIVE); THYROID STIMULATING HORMONE 1.567 uIU/ML (0.55-4.78)
[2023-07-18 16:45] VITALS: BP 162/72; TEMP 98; O2SAT 96
== END 2023-07-18 17:06 | disposition home or self-care (01) ==
LOC: M ED 13:12 → EDBD 13:12 → M ED 17:06
DX: R53.81 Other malaise (principal); I44.4 Left anterior fascicular block; I51.7 Cardiomegaly; I10 Essential (primary) hypertension; E78.5 Hyperlipidemia, unspecified; K21.9 Gastro-esophageal reflux disease without esophagitis; E03.9 Hypothyroidism, unspecified; Z88.1 Allergy status to other antibiotic agents; Z88.8 Allergy status to other drugs, medicaments and biological substances; Z79.52 Long term (current) use of systemic steroids; Z79.83 Long term (current) use of bisphosphonates; Z79.899 Other long term (current) drug therapy

== ENCOUNTER → 2023-08-26 | Outpatient (CLI) | payer MEDICARE, OTHER ==
[~2023-08-26] MED LIST changes: -CEFD300C41 PO; +CEFD300C42 PO
[2023-08-26 13:44] LABS: BASO # 0.1 10^3/uL (0.0-0.2); BASO % 0.7 % (0.0-1.0); EOS # 0.1 10^3/uL (0.0-0.5); EOS % 1.5 % (0.0-3.0); HEMATOCRIT 44.2 % (36.0-47.0); HEMOGLOBIN 14.4 g/dl (12.0-15.5); LYMPH # 2.2 10^3/uL (1.5-5.0); LYMPH % 32.5 % (24.0-44.0); MEAN CORPUSCULAR HEMOGLOBIN 29.8 pg (27.0-33.0); MEAN CORPUSCULAR HGB CONC 32.6 g/dl (32.0-36.5); MEAN CORPUSCULAR VOLUME 91.3 fl (80.0-96.0); MONO # 0.5 10^3/uL (0.0-0.8); PLATELET COUNT, AUTOMATED 236 10^3/uL (150-450); RED BLOOD COUNT 4.84 10^6/uL (4.00-5.40); WHITE BLOOD COUNT 6.9 10^3/uL (4.0-10.0)
[2023-08-26 14:00] LABS: ALKALINE PHOSPHATASE 74 U/L (46-116); ALT/SGPT 18 U/L (7.0-40); AST/SGOT 17 U/L (<34); BILIRUBIN,TOTAL 0.6 MG/DL (0.3-1.2); BLOOD UREA NITROGEN 11 MG/DL (9-23); CALCIUM LEVEL 9.7 MG/DL (8.3-10.6); CARBON DIOXIDE LEVEL 31 MMOL/L (20-31); CHLORIDE LEVEL 103 MMOL/L (98-107); CREATININE FOR GFR 0.83 MG/DL (0.55-1.30); GLOMERULAR FILTRATION RATE > 60.0 (>32); GLUCOSE, FASTING 87 MG/DL (74-106); POTASSIUM SERUM 4.3 MMOL/L (3.5-5.1); SODIUM LEVEL 139 MMOL/L (136-145); TOTAL PROTEIN 7.4 G/DL (5.7-8.2)
== END ==
LOC: M PLALAB 11:55
PROVIDERS: ATTEND Nurse Practitioner Adult Health
DX: I10 Essential (primary) hypertension (principal)

== ENCOUNTER 2024-03-18 12:51 | Observation (INO) | payer MEDICARE, OTHER ==
[~2024-03-18] VITALS: Ht 157.5 cm; Wt 81.1 kg
[~2024-03-18 12:51] MED LIST changes: -ALBU8.5H; +ALBU8.5H INH; -ARIP1TAB4; +ARIP1TAB4 PO; +BYST1TAB2 PO; -BYST5TAB2 PO; +CEFD1CAP9 PO; -CEFD300C42 PO; -HYDR-3910 PO; +HYDR25TA87 PO
[2024-03-18 13:42] LABS: BASO # 0.1 10^3/uL (0.0-0.2); BASO % 0.7 % (0.0-1.0); EOS # 0.1 10^3/uL (0.0-0.5); EOS % 1.1 % (0.0-3.0); HEMATOCRIT 38.5 % (36.0-47.0); HEMOGLOBIN 12.7 g/dl (12.0-15.5); LYMPH # 2.5 10^3/uL (1.5-5.0); LYMPH % 33.9 % (24.0-44.0); MEAN CORPUSCULAR HEMOGLOBIN 29.7 pg (27.0-33.0); MONO # 0.5 10^3/uL (0.0-0.8); MONO % 7.3 % (2.0-8.0); NEUTROPHILS # 4.2 10^3/uL (1.5-8.5); NEUTROPHILS % 56.9 % (36.0-66.0); PLATELET COUNT, AUTOMATED 224 10^3/uL (150-450); RED BLOOD COUNT 4.28 10^6/uL (4.00-5.40); WHITE BLOOD COUNT 7.4 10^3/uL (4.0-10.0)
[2024-03-18] MEDS ORDERED: ACET650T15 PO (14:10)
[2024-03-18] MEDS ORDERED: SYST1SOL4 OU (14:10)
[2024-03-18] MEDS ORDERED: RISP0.5T82 PO (14:10)
[2024-03-18] MEDS ORDERED: ASPI81TA26 PO (14:10)
[2024-03-18] MEDS ORDERED: LOPE1CAP5 PO (14:10)
[2024-03-18] MEDS ORDERED: GUAI100L6 PO (14:10)
[2024-03-18] MEDS ORDERED: FAMO40TA3 PO (14:10)
[2024-03-18] MEDS ORDERED: D3 S20002 PO (14:10)
[2024-03-18] MEDS ORDERED: CHOL4PW PO (14:10)
[2024-03-18] MEDS ORDERED: HOME MED LIST COMPLETE! XX SCH (14:15)
[2024-03-18 14:16] LABS: BLOOD UREA NITROGEN 18 MG/DL (9-23); CARBON DIOXIDE LEVEL 27 MMOL/L (20-31); CHLORIDE LEVEL 103 MMOL/L (98-107); CREATININE FOR GFR 0.87 MG/DL (0.55-1.30); GLOMERULAR FILTRATION RATE > 60.0 (>32); GLUCOSE, FASTING 126 MG/DL (74-106); POTASSIUM SERUM 4.2 MMOL/L (3.5-5.1); SODIUM LEVEL 138 MMOL/L (136-145)
[2024-03-18 14:20] LABS: THYROID STIMULATING HORMONE 2.159 uIU/ML (0.55-4.78)
[2024-03-18] MEDS: ACETAMINOPHEN TAB 650MG DOSE (2X325MG) PO ONE (18:29)
[2024-03-19] MEDS: ACETAMINOPHEN TAB 650MG DOSE (2X325MG) PO PRN (01:47)
[2024-03-19 05:36] VITALS: BP 141/52; TEMP 97.3; O2SAT 97
[2024-03-19 06:24] LABS: HEMATOCRIT 40.4 % (36.0-47.0); MEAN CORPUSCULAR HEMOGLOBIN 28.9 pg (27.0-33.0); MEAN CORPUSCULAR HGB CONC 32.2 g/dl (32.0-36.5); MEAN CORPUSCULAR VOLUME 89.8 fl (80.0-96.0); PLATELET COUNT, AUTOMATED 211 10^3/uL (150-450); WHITE BLOOD COUNT 7.3 10^3/uL (4.0-10.0)
[2024-03-19 06:46] LABS: ALBUMIN 3.4 G/DL (3.2-5.2); ALKALINE PHOSPHATASE 68 U/L (46-116); ALT/SGPT 19 U/L (7.0-40); AST/SGOT 20 U/L (<34); BILIRUBIN,TOTAL 0.7 MG/DL (0.3-1.2); BLOOD UREA NITROGEN 12 MG/DL (9-23); CALCIUM LEVEL 9.2 MG/DL (8.3-10.6); CARBON DIOXIDE LEVEL 27 MMOL/L (20-31); CHLORIDE LEVEL 107 MMOL/L (98-107); CREATININE FOR GFR 0.81 MG/DL (0.55-1.30); GLOMERULAR FILTRATION RATE > 60.0 (>32); GLUCOSE, FASTING 98 MG/DL (74-106); SODIUM LEVEL 141 MMOL/L (136-145); TOTAL PROTEIN 6.4 G/DL (5.7-8.2)
[2024-03-19] MEDS ORDERED: ALBUTEROL 90 MCG/ACT 8GM HFA INHALER INH PRN (07:25)
[2024-03-19] MEDS: **hydrALAZINE HCL** 25 MG TAB PO SCH ×2 (08:40→16:35)
[2024-03-19] MEDS: CHOLESTYRAMINE 4GM PWD PKT PO SCH (08:41)
[2024-03-19] MEDS: PANTOPRAZOLE 40MG TAB (PROTONIX) PO SCH (08:41)
[2024-03-19] MEDS: ENOXAPARIN 40MG/0.4ML SYRINGE (J1650 PER 10MG) SC SCH (08:41)
[2024-03-19] MEDS: ASPIRIN 81MG ENTERIC TABLET PO SCH (08:41)
[2024-03-19] MEDS: LEVOTHYROXINE 75MCG TABLET (0.075MG) PO SCH (09:10)
[2024-03-19 10:00] VITALS: BP 159/64; TEMP 97.3; O2SAT 96
[2024-03-19 14:00] VITALS: BP 150/69; TEMP 97.2; O2SAT 97
[2024-03-19 18:00] VITALS: BP 169/90; TEMP 97.2; O2SAT 96
[2024-03-19 21:17] VITALS: BP 130/62; TEMP 97.3; O2SAT 95
[2024-03-19] MEDS: risperiDONE 0.5 MG TAB PO SCH (21:19)
[2024-03-19] MEDS: ARIPiprazole 2 MG TAB PO SCH (21:20)
[2024-03-20 05:22] VITALS: BP 132/61; TEMP 97.3; O2SAT 96
[2024-03-20 13:45] VITALS: BP 146/65; TEMP 97.3; O2SAT 96
[2024-03-20] MEDS: BISOPROLOL FUM 2.5 MG PER 1/2TAB PO SCH (13:50)
[2024-03-20 18:00] VITALS: BP 160/72; TEMP 97.7; O2SAT 95
[2024-03-20 18:25] VITALS: BP 160/72
[2024-03-20 19:43] VITALS: BP 127/52; TEMP 97.3; O2SAT 96
[2024-03-20 20:39] VITALS: BP 160/72
[2024-03-21 02:18] VITALS: BP 133/98; TEMP 97.5; O2SAT 95
[2024-03-21 05:28] VITALS: BP 152/75; TEMP 97.3; O2SAT 92
[2024-03-21 06:13] LABS: HEMATOCRIT 40.5 % (36.0-47.0); HEMOGLOBIN 13.2 g/dl (12.0-15.5); MEAN CORPUSCULAR HEMOGLOBIN 29.1 pg (27.0-33.0); MEAN CORPUSCULAR HGB CONC 32.6 g/dl (32.0-36.5); MEAN CORPUSCULAR VOLUME 89.2 fl (80.0-96.0); PLATELET COUNT, AUTOMATED 225 10^3/uL (150-450); RED BLOOD COUNT 4.54 10^6/uL (4.00-5.40); WHITE BLOOD COUNT 7.2 10^3/uL (4.0-10.0)
[2024-03-21 09:55] VITALS: BP 122/54; TEMP 97.3; O2SAT 93
[2024-03-21] MEDS ORDERED: HYDR25TA87 PO (10:20)
[2024-03-21] MEDS ORDERED: BYST1TAB2 PO (10:20)
== END 2024-03-21 12:12 | disposition home or self-care (01) ==
LOC: EDBD 12:51 → M ED 12:51 → M ED INP 18:30 → M MSPAV 03-19 05:23
PROVIDERS: ADMIT Preventive Medicine Undersea and Hyperbaric Medicine; ATTEND Preventive Medicine Undersea and Hyperbaric Medicine
DX: R55 Syncope and collapse (principal); R00.1 Bradycardia, unspecified; F03.90 Unspecified dementia, unspecified severity, without behavioral disturbance, psychotic disturbance, mood disturbance, and anxiety; I10 Essential (primary) hypertension; Z79.82 Long term (current) use of aspirin; Z79.899 Other long term (current) drug therapy; Z88.1 Allergy status to other antibiotic agents; Z88.8 Allergy status to other drugs, medicaments and biological substances
CPT/HCPCS: 36415; 70450; 71045; 71250; 80048; 80053; 83880; 84443; 84484; 85025; 85027; 93005; 93041; 93306; 94760; 97161; 97530; 99285; G0378; J1650

== ENCOUNTER 2024-03-24 10:18 | Emergency (ER) | payer MEDICARE, OTHER ==
[~2024-03-24 10:18] MED LIST changes: +ACET650T15 PO; +ASPI81TA26 PO; -BYST1TAB2 PO; +BYST5TAB2 PO; +CHOL4PW PO; +D3 S20002 PO; +FAMO40TA3 PO; +GUAI100L6 PO; +LOPE1CAP5 PO; +RISP0.5T82 PO; +SYST1SOL4 OU
[2024-03-24] MEDS ORDERED: HYDR25TA87 PO (10:58)
[2024-03-24] MEDS ORDERED: HOME MED LIST COMPLETE! XX SCH (11:05)
[2024-03-24 12:11] LABS: BASO # 0.1 10^3/uL (0.0-0.2); BASO % 0.8 % (0.0-1.0); EOS # 0.1 10^3/uL (0.0-0.5); EOS % 0.8 % (0.0-3.0); HEMATOCRIT 43.3 % (36.0-47.0); HEMOGLOBIN 14.2 g/dl (12.0-15.5); LYMPH # 2.4 10^3/uL (1.5-5.0); LYMPH % 31.2 % (24.0-44.0); MEAN CORPUSCULAR HEMOGLOBIN 29.8 pg (27.0-33.0); MEAN CORPUSCULAR HGB CONC 32.8 g/dl (32.0-36.5); MONO # 0.6 10^3/uL (0.0-0.8); MONO % 8.1 % (2.0-8.0); NEUTROPHILS # 4.5 10^3/uL (1.5-8.5); PLATELET COUNT, AUTOMATED 219 10^3/uL (150-450); RED BLOOD COUNT 4.76 10^6/uL (4.00-5.40); WHITE BLOOD COUNT 7.7 10^3/uL (4.0-10.0)
[2024-03-24 12:26] LABS: LIPASE 31 U/L (12-53)
[2024-03-24 12:29] LABS: ALBUMIN 3.8 G/DL (3.2-5.2); ALKALINE PHOSPHATASE 70 U/L (46-116); ALT/SGPT 31 U/L (7.0-40); AST/SGOT 26 U/L (<34); BILIRUBIN,DIRECT 0.1 MG/DL (<0.4); BILIRUBIN,TOTAL 0.4 MG/DL (0.3-1.2); BLOOD UREA NITROGEN 10 MG/DL (9-23); CALCIUM LEVEL 9.2 MG/DL (8.3-10.6); CARBON DIOXIDE LEVEL 26 MMOL/L (20-31); CHLORIDE LEVEL 105 MMOL/L (98-107); CK-MB VALUE MASS 2.8 NG/ML (<3.6); CREATININE FOR GFR 0.73 MG/DL (0.55-1.30); GLOMERULAR FILTRATION RATE > 60.0 (>32); GLUCOSE, FASTING 86 MG/DL (74-106); POTASSIUM SERUM 4.3 MMOL/L (3.5-5.1); SODIUM LEVEL 138 MMOL/L (136-145); TOTAL PROTEIN 6.8 G/DL (5.7-8.2)
[2024-03-24 12:30] LABS: CPK CREATINE PHOSPHOKINASE 95 U/L (34-145); MB/CK RELATIVE INDEX 2.94 (< OR =4)
[2024-03-24 15:34] VITALS: BP 168/80; TEMP 98.2; O2SAT 96
== END 2024-03-24 15:30 | disposition home or self-care (01) ==
LOC: M ED 10:18
DX: R53.1 Weakness (principal); J18.1 Lobar pneumonia, unspecified organism; I44.4 Left anterior fascicular block; I10 Essential (primary) hypertension; K21.9 Gastro-esophageal reflux disease without esophagitis; K44.9 Diaphragmatic hernia without obstruction or gangrene; E03.9 Hypothyroidism, unspecified; F32.A Depression, unspecified; F41.9 Anxiety disorder, unspecified; Z79.52 Long term (current) use of systemic steroids; Z79.1 Long term (current) use of non-steroidal anti-inflammatories (NSAID); Z79.83 Long term (current) use of bisphosphonates; Z79.82 Long term (current) use of aspirin; Z79.899 Other long term (current) drug therapy; Z88.1 Allergy status to other antibiotic agents; Z88.8 Allergy status to other drugs, medicaments and biological substances

== ENCOUNTER → 2024-04-27 | Outpatient (REF) | payer MEDICARE, OTHER ==
[~2024-04-27] MED LIST changes: +BYST1TAB2 PO; -BYST5TAB2 PO
== END ==
LOC: M LAB REF 17:23
PROVIDERS: ATTEND Family Medicine
DX: N39.0 Urinary tract infection, site not specified (principal)

== ENCOUNTER → 2024-08-24 | Outpatient (CLI) | payer MEDICARE, OTHER ==
[2024-08-24 15:52] LABS: BASO # 0.1 10^3/uL (0.0-0.2); BASO % 0.6 % (0.0-1.0); EOS # 0.1 10^3/uL (0.0-0.5); EOS % 0.9 % (0.0-3.0); HEMATOCRIT 41.2 % (36.0-47.0); HEMOGLOBIN 13.6 g/dl (12.0-15.5); LYMPH # 2.4 10^3/uL (1.5-5.0); LYMPH % 31.1 % (24.0-44.0); MEAN CORPUSCULAR HEMOGLOBIN 29.1 pg (27.0-33.0); MEAN CORPUSCULAR VOLUME 88.2 fl (80.0-96.0); MONO # 0.6 10^3/uL (0.0-0.8); MONO % 8.3 % (2.0-8.0); NEUTROPHILS # 4.6 10^3/uL (1.5-8.5); NEUTROPHILS % 58.8 % (36.0-66.0); PLATELET COUNT, AUTOMATED 233 10^3/uL (150-450); RED BLOOD COUNT 4.67 10^6/uL (4.00-5.40); WHITE BLOOD COUNT 7.8 10^3/uL (4.0-10.0)
[2024-08-24 17:20] LABS: LIPASE 34 U/L (12-53)
[2024-08-24 17:23] LABS: AMYLASE 39 U/L (30-118)
[2024-08-24 18:16] LABS: ALBUMIN 3.8 G/DL (3.2-5.2); ALKALINE PHOSPHATASE 73 U/L (46-116); ALT/SGPT 20 U/L (7.0-40); AST/SGOT 15 U/L (<34); BILIRUBIN,TOTAL 0.4 MG/DL (0.3-1.2); BLOOD UREA NITROGEN 14 MG/DL (9-23); CALCIUM LEVEL 10.3 MG/DL (8.3-10.6); CARBON DIOXIDE LEVEL 28 MMOL/L (20-31); CHLORIDE LEVEL 102 MMOL/L (98-107); CREATININE FOR GFR 0.76 MG/DL (0.55-1.30); FREE T4 1.27 NG/DL (0.89-1.76); GLOMERULAR FILTRATION RATE > 60.0 (>32); GLUCOSE, FASTING 96 MG/DL (74-106); POTASSIUM SERUM 4.3 MMOL/L (3.5-5.1); SODIUM LEVEL 135 MMOL/L (136-145); THYROID STIMULATING HORMONE 2.492 uIU/ML (0.55-4.78); TOTAL PROTEIN 7.1 G/DL (5.7-8.2)
== END ==
LOC: M LAB 15:02
PROVIDERS: ATTEND Family Medicine
DX: R10.31 Right lower quadrant pain (principal); R44.0 Auditory hallucinations; R10.11 Right upper quadrant pain; Z79.899 Other long term (current) drug therapy

== ENCOUNTER → 2024-08-31 | Outpatient (CLI) | payer MEDICARE, OTHER ==
[~2024-08-31] MED LIST changes: +ISOVUE-370 76% 100ML VIAL As Ordered ONE
== END ==
LOC: M RAD 13:45
PROVIDERS: ATTEND Family Medicine
DX: R10.31 Right lower quadrant pain (principal); R10.11 Right upper quadrant pain; K76.0 Fatty (change of) liver, not elsewhere classified
CPT/HCPCS: 74177; Q9967

== ENCOUNTER 2024-10-16 10:01 | Emergency (ER) | payer MEDICARE, OTHER ==
[~2024-10-16 10:01] MED LIST changes: -ISOVUE-370 76% 100ML VIAL As Ordered ONE
[2024-10-16 13:10] VITALS: BP 184/78; TEMP 98.5; O2SAT 96
== END 2024-10-16 13:23 | disposition home or self-care (01) ==
LOC: EDBD 10:01 → M ED 10:01
DX: S70.02XA Contusion of left hip, initial encounter (principal); W01.0XXA Fall on same level from slipping, tripping and stumbling without subsequent striking against object, initial encounter; I10 Essential (primary) hypertension; E78.5 Hyperlipidemia, unspecified; F41.1 Generalized anxiety disorder; F32.A Depression, unspecified; E03.9 Hypothyroidism, unspecified; Z86.79 Personal history of other diseases of the circulatory system; Z79.82 Long term (current) use of aspirin; Z79.899 Other long term (current) drug therapy; Y92.009 Unspecified place in unspecified non-institutional (private) residence as the place of occurrence of the external cause; Y93.89 Activity, other specified; Y99.9 Unspecified external cause status; Z88.1 Allergy status to other antibiotic agents; Z88.8 Allergy status to other drugs, medicaments and biological substances; Z79.1 Long term (current) use of non-steroidal anti-inflammatories (NSAID)

== ENCOUNTER 2024-12-07 10:37 | Emergency (ER) | payer MEDICARE, OTHER ==
[~2024-12-07] VITALS: Ht 165.1 cm; Wt 80.6 kg
[2024-12-07] MEDS: LIDOCAINE 2% 5ML JELLY UROJET TOP ONE (10:55)
[2024-12-07 11:39] LABS: VENOUS BASE EXCESS -2.8 (-2.0-2.0); VENOUS HCO3 23.3 MMOL/L (23.0-27.0); VENOUS PARTIAL PRESSURE CO2 45.4 mmHg (38.0-50.0); VENOUS PARTIAL PRESSURE O2 39.6 mmHg (30.0-50.0); VENOUS PH 7.328 UNITS (7.330-7.430); VENOUS STANDARD HCO3 21.6 MMOL/L; VENOUS TOTAL CO2 24.7 MMOL/L (24.0-28.0)
[2024-12-07 11:47] LABS: KETONE, URINE AUTO RFX NEGATIVE (NEGATIVE); LEUKOCYTE ESTERASE UR AUTO RFX NEGATIVE (NEGATIVE); MUCUS, URINE RFX LARGE (NEGATIVE); NITRITE, URINE AUTO RFX NEGATIVE (NEGATIVE); RBC, URINE AUTO RFX 7 /HPF (0-3); SQUAM EPITHELIAL CELL UR AURFX 0 /HPF (0-6); WBC, URINE AUTO RFX 4 /HPF (0-3)
[2024-12-07 11:48] LABS: BASO % 0.6 % (0.0-1.0); EOS # 0.1 10^3/uL (0.0-0.5); EOS % 1.7 % (0.0-3.0); HEMATOCRIT 41.4 % (36.0-47.0); HEMOGLOBIN 13.5 g/dl (12.0-15.5); LYMPH # 1.8 10^3/uL (1.5-5.0); LYMPH % 27.5 % (24.0-44.0); MEAN CORPUSCULAR HEMOGLOBIN 29.8 pg (27.0-33.0); MEAN CORPUSCULAR HGB CONC 32.6 g/dl (32.0-36.5); MEAN CORPUSCULAR VOLUME 91.4 fl (80.0-96.0); MONO # 0.6 10^3/uL (0.0-0.8); MONO % 8.7 % (2.0-8.0); NEUTROPHILS % 61.2 % (36.0-66.0); PLATELET COUNT, AUTOMATED 217 10^3/uL (150-450); RED BLOOD COUNT 4.53 10^6/uL (4.00-5.40); WHITE BLOOD COUNT 6.6 10^3/uL (4.0-10.0)
[2024-12-07 12:08] LABS: ALBUMIN 3.5 G/DL (3.2-5.2); ALKALINE PHOSPHATASE 63 U/L (35-104); ALT/SGPT 18 U/L (7.0-40); AST/SGOT 19 U/L (<34); BILIRUBIN,DIRECT 0.2 MG/DL (<0.4); BILIRUBIN,TOTAL 0.6 MG/DL (0.3-1.2); BLOOD UREA NITROGEN 13 MG/DL (9-23); CALCIUM LEVEL 9.4 MG/DL (8.3-10.6); CARBON DIOXIDE LEVEL 27 MMOL/L (20-31); CHLORIDE LEVEL 107 MMOL/L (98-107); GLOMERULAR FILTRATION RATE > 60.0 (>32); GLUCOSE, FASTING 128 MG/DL (74-106); POTASSIUM SERUM 4.4 MMOL/L (3.5-5.1); SODIUM LEVEL 143 MMOL/L (136-145); TOTAL PROTEIN 6.9 G/DL (5.7-8.2)
[2024-12-07 12:10] LABS: THYROID STIMULATING HORMONE 2.852 uIU/ML (0.55-4.78)
[2024-12-07 14:15] VITALS: BP 155/55; TEMP 97.3; O2SAT 97
== END 2024-12-07 14:36 | disposition home or self-care (01) ==
LOC: M ED 10:37 → EDBD 10:37 → M ED 14:36
DX: F03.90 Unspecified dementia, unspecified severity, without behavioral disturbance, psychotic disturbance, mood disturbance, and anxiety (principal); I48.91 Unspecified atrial fibrillation; I10 Essential (primary) hypertension; E78.5 Hyperlipidemia, unspecified; F41.9 Anxiety disorder, unspecified; F32.A Depression, unspecified; E03.9 Hypothyroidism, unspecified; Z79.52 Long term (current) use of systemic steroids; Z79.82 Long term (current) use of aspirin; Z79.1 Long term (current) use of non-steroidal anti-inflammatories (NSAID); Z79.899 Other long term (current) drug therapy

== ENCOUNTER → 2025-01-13 | Outpatient (CLI) | payer MEDICARE, OTHER | LOC: M RAD 15:19 | PROVIDERS: ATTEND Internal Medicine | DX: M17.11 Unilateral primary osteoarthritis, right knee (principal); M16.11 Unilateral primary osteoarthritis, right hip; M25.551 Pain in right hip; M25.561 Pain in right knee; M79.651 Pain in right thigh ==

== ENCOUNTER → 2025-01-13 | Outpatient (REF) | payer MEDICARE, OTHER ==
[2025-01-13 13:30] LABS: HEMATOCRIT 40.6 % (36.0-47.0); MEAN CORPUSCULAR HEMOGLOBIN 29.1 pg (27.0-33.0); PLATELET COUNT, AUTOMATED 246 10^3/uL (150-450); RED BLOOD COUNT 4.46 10^6/uL (4.00-5.40); WHITE BLOOD COUNT 7.6 10^3/uL (4.0-10.0)
[2025-01-13 13:54] LABS: ALBUMIN 3.5 G/DL (3.2-5.2); ALKALINE PHOSPHATASE 72 U/L (35-104); ALT/SGPT 28 U/L (7.0-40); AST/SGOT 27 U/L (<34); BILIRUBIN,TOTAL 0.2 MG/DL (0.3-1.2); BLOOD UREA NITROGEN 14 MG/DL (9-23); CALCIUM LEVEL 9.3 MG/DL (8.3-10.6); CARBON DIOXIDE LEVEL 27 MMOL/L (20-31); CHLORIDE LEVEL 107 MMOL/L (98-107); CREATININE FOR GFR 0.83 MG/DL (0.55-1.30); GLOMERULAR FILTRATION RATE > 60.0 (>32); GLUCOSE, FASTING 111 MG/DL (74-106); POTASSIUM SERUM 4.5 MMOL/L (3.5-5.1); SODIUM LEVEL 142 MMOL/L (136-145); TOTAL PROTEIN 6.7 G/DL (5.7-8.2)
[2025-01-13 13:55] LABS: TOTAL 25(OH) VITAMIN D 77.7 NG/ML (20.0-100.0)
[2025-01-13 13:56] LABS: THYROID STIMULATING HORMONE 1.127 uIU/ML (0.55-4.78); VITAMIN B12 LEVEL 1813 PG/ML (211-911)
== END ==
LOC: SKLAB8 12:21
PROVIDERS: ATTEND Internal Medicine
DX: E55.9 Vitamin D deficiency, unspecified (principal); E53.8 Deficiency of other specified B group vitamins; R41.82 Altered mental status, unspecified; M17.11 Unilateral primary osteoarthritis, right knee; M16.11 Unilateral primary osteoarthritis, right hip; M25.551 Pain in right hip; M25.561 Pain in right knee; M79.651 Pain in right thigh

== ENCOUNTER → 2025-02-06 | Outpatient (REF) | payer MEDICARE, OTHER ==
[2025-02-06 17:27] LABS: BASO % 0.2 % (0.0-1.0); HEMATOCRIT 43.2 % (36.0-47.0); HEMOGLOBIN 13.8 g/dl (12.0-15.5); LYMPH # 0.7 10^3/uL (1.5-5.0); LYMPH % 7.3 % (24.0-44.0); MEAN CORPUSCULAR HEMOGLOBIN 28.6 pg (27.0-33.0); MEAN CORPUSCULAR HGB CONC 31.9 g/dl (32.0-36.5); MEAN CORPUSCULAR VOLUME 89.4 fl (80.0-96.0); MONO # 0.5 10^3/uL (0.0-0.8); MONO % 5.5 % (2.0-8.0); NEUTROPHILS # 7.7 10^3/uL (1.5-8.5); NEUTROPHILS % 86.6 % (36.0-66.0); PLATELET COUNT, AUTOMATED 307 10^3/uL (150-450); RED BLOOD COUNT 4.83 10^6/uL (4.00-5.40); WHITE BLOOD COUNT 8.9 10^3/uL (4.0-10.0)
[2025-02-06 17:49] LABS: BLOOD UREA NITROGEN 15 MG/DL (9-23); CALCIUM LEVEL 8.7 MG/DL (8.3-10.6); CARBON DIOXIDE LEVEL 25 MMOL/L (20-31); CHLORIDE LEVEL 104 MMOL/L (98-107); GLOMERULAR FILTRATION RATE > 60.0 (>32); GLUCOSE, FASTING 93 MG/DL (74-106); POTASSIUM SERUM 4.6 MMOL/L (3.5-5.1); SODIUM LEVEL 141 MMOL/L (136-145)
== END ==
LOC: SKLAB8 14:23
PROVIDERS: ATTEND Internal Medicine
DX: R05.9 Cough, unspecified (principal); R06.02 Shortness of breath

== ENCOUNTER → 2025-03-07 | Outpatient (REF) | payer MEDICARE, OTHER ==
[~2025-03-07] MED LIST changes: +AMLO-751 PO; -AMLO10TA PO
[2025-03-07 16:58] LABS: BASO # 0.1 10^3/uL (0.0-0.2); BASO % 0.5 % (0.0-1.0); EOS # 0.2 10^3/uL (0.0-0.5); HEMATOCRIT 40.5 % (36.0-47.0); HEMOGLOBIN 13.2 g/dl (12.0-15.5); LYMPH % 21.4 % (24.0-44.0); MEAN CORPUSCULAR HEMOGLOBIN 28.8 pg (27.0-33.0); MEAN CORPUSCULAR HGB CONC 32.6 g/dl (32.0-36.5); MEAN CORPUSCULAR VOLUME 88.2 fl (80.0-96.0); MONO # 0.9 10^3/uL (0.0-0.8); MONO % 9.2 % (2.0-8.0); NEUTROPHILS # 6.2 10^3/uL (1.5-8.5); NEUTROPHILS % 66.6 % (36.0-66.0); PLATELET COUNT, AUTOMATED 247 10^3/uL (150-450); RED BLOOD COUNT 4.59 10^6/uL (4.00-5.40); WHITE BLOOD COUNT 9.3 10^3/uL (4.0-10.0)
[2025-03-07 17:26] LABS: CALCIUM LEVEL 8.9 MG/DL (8.3-10.6); CREATININE FOR GFR 0.66 MG/DL (0.55-1.30); POTASSIUM SERUM 4.6 MMOL/L (3.5-5.1)
== END ==
LOC: SKLAB8 14:52
PROVIDERS: ATTEND Internal Medicine
DX: Z91.81 History of falling (principal)

== ENCOUNTER → 2025-06-22 | Outpatient (REF) | payer MEDICARE, OTHER ==
[~2025-06-22] MED LIST changes: +ACET-1515 PO; -ACET650T15 PO
[2025-06-22 08:46] LABS: PLATELET COUNT, AUTOMATED 183 10^3/uL (150-450)
[2025-06-22 09:17] LABS: ALT/SGPT 23.0 U/L (7.0-40); AST/SGOT 24.0 U/L (<34); CALCIUM LEVEL 9.2 MG/DL (8.3-10.6); CARBON DIOXIDE LEVEL 28.0 MMOL/L (20-31); CHLORIDE LEVEL 103.0 MMOL/L (98-107); CHOLESTEROL LEVEL 158.0 MG/DL (<200); CHOLESTEROL RISK RATIO 4.75 (<5); CREATININE FOR GFR 0.66 MG/DL (0.55-1.30); GLOMERULAR FILTRATION RATE 86.5 (>32); LDL CHOLESTEROL 49.4 MG/DL (<100); NON-HDL-C 124.8 MG/DL; POTASSIUM SERUM 4.3 MMOL/L (3.5-5.1); SODIUM LEVEL 142.0 MMOL/L (136-145); TRIGLYCERIDES LEVEL 377.0 MG/DL (<150)
[2025-06-22 09:19] LABS: TOTAL 25(OH) VITAMIN D 71.6 NG/ML (20.0-100.0); VITAMIN B12 LEVEL 478.0 PG/ML (211-911)
== END ==
LOC: SKLAB8 07:00
PROVIDERS: ATTEND Internal Medicine
DX: I10 Essential (primary) hypertension (principal); Z79.899 Other long term (current) drug therapy

== ENCOUNTER → 2025-07-18 | Outpatient (REF) | payer MEDICARE, OTHER ==
[2025-07-18 11:30] LABS: PLATELET COUNT, AUTOMATED 194 10^3/uL (150-450)
[2025-07-18 11:54] LABS: CALCIUM LEVEL 9.0 MG/DL (8.3-10.6); CARBON DIOXIDE LEVEL 29.0 MMOL/L (20-31); CHLORIDE LEVEL 102.0 MMOL/L (98-107); CREATININE FOR GFR 0.76 MG/DL (0.55-1.30); GLOMERULAR FILTRATION RATE 77.2 (>32); POTASSIUM SERUM 4.4 MMOL/L (3.5-5.1); SODIUM LEVEL 139.0 MMOL/L (136-145)
== END ==
LOC: SKLAB8 07:00
PROVIDERS: ATTEND Internal Medicine
DX: D64.9 Anemia, unspecified (principal); E03.9 Hypothyroidism, unspecified

== ENCOUNTER → 2025-07-29 | Outpatient (REF) | payer MEDICARE, OTHER | LOC: SKLAB8 07:00 | PROVIDERS: ATTEND Nurse Practitioner Adult Health | DX: R09.89 Other specified symptoms and signs involving the circulatory and respiratory systems (principal) ==

== ENCOUNTER → 2025-09-27 | Outpatient (REF) | payer MEDICARE, OTHER | LOC: SKLAB2 13:14 | PROVIDERS: ATTEND Internal Medicine | DX: M25.511 Pain in right shoulder (principal); W19.XXXA Unspecified fall, initial encounter; Y93.9 Activity, unspecified; Y92.129 Unspecified place in nursing home as the place of occurrence of the external cause ==

== ENCOUNTER → 2025-10-03 | Outpatient (REF) | payer MEDICARE, OTHER | LOC: SKLAB8 09:53 | PROVIDERS: ATTEND Internal Medicine | DX: E03.9 Hypothyroidism, unspecified (principal) ==

== ENCOUNTER → 2025-10-09 | Outpatient (REF) | payer MEDICARE, OTHER ==
[2025-10-09 10:34] LABS: PLATELET COUNT, AUTOMATED 195 10^3/uL (150-450)
[2025-10-09 11:00] LABS: CALCIUM LEVEL 8.7 MG/DL (8.3-10.6); CARBON DIOXIDE LEVEL 27.0 MMOL/L (20-31); CHLORIDE LEVEL 110.0 MMOL/L (98-107); CREATININE FOR GFR 0.65 MG/DL (0.55-1.30); GLOMERULAR FILTRATION RATE 86.8 (>32); POTASSIUM SERUM 3.6 MMOL/L (3.5-5.1); SODIUM LEVEL 146.0 MMOL/L (136-145)
== END ==
LOC: SKLAB8 09:39
PROVIDERS: ATTEND Internal Medicine
DX: J40 Bronchitis, not specified as acute or chronic (principal)